=== PATIENT | female | born 1950 | race Caucasian/White ===

== ENCOUNTER 2018-11-30 10:51 | Emergency (ER) | payer MEDICARE, SELFPAY ==
[2018-11-30 10:52] VITALS: BP 188/75; PULSE 47; RESP 16; TEMP 36.6; O2SAT 97; BMI 33.0
--- NOTE | 2018-11-30 10:54 | RAD_ITS ---
STUDY: X-RAY CHEST REASON FOR EXAM: Female, 68 years old. Chest pressure. TECHNIQUE: Single AP portable view of the chest. COMPARISON: Comparison is made with prior study dated September 21, 2017. FINDINGS: EKG electrodes are seen. The lungs are clear and expanded. There is no demonstrated pleural abnormality. Normal size heart. Normal mediastinum and tex. Normal visualized pulmonary arteries. Normal visualized aortic arch and descending thoracic aorta. There are diffuse degenerative changes of the visualized thoracic spine. Normal visualized ribs, clavicles, and shoulders. There is no demonstrated abnormality of the visualized soft tissue structures of the upper abdomen. RAD/Chest 1 View (Portable) IMPRESSION: No acute abnormality is seen. Electronically Signed: Eleazar Cummings MD at 11:29 EST , Service support ,
--- NOTE | 2018-11-30 10:54 | EKG12_ITS ---
Test Reason : CHEST TIGHTNESS Blood Pressure : / mmHG Vent. Rate : 050 BPM Atrial Rate : 050 BPM P-R Int : 184 ms QRS Dur : 094 ms QT Int : 430 ms P-R-T Axes : 046 001 -09 degrees QTc Int : 392 ms Sinus bradycardia Otherwise normal ECG When compared with ECG of 21-SEP-2017 21:35, Vent. rate has decreased BY 44 BPM Nonspecific T wave abnormality no longer evident in Anterior leads QT has shortened Confirmed by REINA KIRAN, VEL ([id number]), assignment desk editor GLORIA MCNULTY ([id number]) on 12/11/2018 5:33:25 PM Referred By: Naeem Freeman Confirmed By:VEL HUANG MD
[2018-11-30] MEDS: Aspirin 81 MG TAB.CHEW 324 MG PO (11:14)
[2018-11-30 11:15] LABS: Basophil# 0.02 X10^3/uL; Basophil% 0.3 % (0-1); Eosinophil# 0.14 X10^3/uL; Eosinophils% 2.3 % (0-5); Hematocrit 43.4 % (37-47); Hemoglobin 14.1 g/dl (12.0-15.0); Lymphocyte % 26.2 % (19-41); Mean Corp Hgb Conc 32.5 g/gl (32-36); Mean Corpuscular Hgb 31.2 pg (27.0-32.0); Mean Platelet Vol. 10.4 fl (6.2-12.0); Monocyte# 0.36 X10^3/uL; Monocyte% 5.9 % (0-10); Neutrophil # 3.98 X10^3/uL (2.7-7.7); Neutrophil % 65.1 % (47-70); Platelet Count 211 K/mm3 (150-450); Red Blood Count 4.52 M/mm3 (4.2-5.4); White Blood Count 6.1 K/mm3 (4.4-11.0)
[2018-11-30 11:16] LABS: POSITIVE COUNT NO; POSITIVE DIFFERENTIAL NO; POSITIVE MORPHOLOGY NO
[2018-11-30 11:33] LABS: Anion Gap 8 (5-15); BUN 18 mg/dL (7-18); BUN/Creat Ratio 21.5 RATIO (10-20); Chloride 108 mmol/L (98-107); Creatinine, Serum 0.84 mg/dL (0.55-1.02); EST Glomerular Filtration Rate 72 mL/min (>60); Est Glom Filt Rate - Afr Amer 87 mL/min (>60); Estimated Creatinine Clearance 54.58 ml/min; Glucose 175 mg/dL (74-106); Potassium 3.9 mmol/L (3.5-5.1); Sodium Level 143 mmol/L (136-145)
[2018-11-30 11:55] VITALS: BP 138/75; PULSE 49; RESP 11; O2SAT 94
[2018-11-30 12:44] VITALS: BP 147/71; PULSE 47; RESP 13; O2SAT 95
--- NOTE | 2018-11-30 13:34 | ED.VISSUMM ---
- ER Visit Summary Date of Service: 11/30/18 Chief Complaint: Chest tightness History of Present Illness: The patient is a 68 F with chest tightness today. This is in the substernal xiphoid process region but does not radiate. She said her blood pressure has been as high as 195/147 at home. No history of coronary disease, PE, dissection. She does have a history of hypertension. She has not been taking her medications regularly but did take her blood pressure medicine over the last 2 days. No exertional symptoms. No other associated symptoms. Physical Examination: Afebrile and vital signs unremarkable except for a blood pressure of 188/75. Alert and oriented. No acute process. Heart regular. Lungs clear. Abdomen soft. Extremities nontender with no edema. Skin appears normal. Test Results: EKG showed sinus rhythm at a rate of 50. Chest x-ray showed no acute process. CBC, BMP, troponin normal. Emergency Department Course and Treatment: Patient treated with aspirin and placed on a monitor. Her workup as above. Heart score was 3. Repeat blood pressure 138/75. She says her heart rate is typically in the 50s. She has an atypical presentation and low risk. She was discussed with her PCP. We will advised outpatient follow-up. Return for any new or worsening issues. Patient was in agreement. All questions answered. Treatment Plan: As above Disposition: Discharged Impression: 1. Atypical chest pain This note was generated with [employer] software. It may contain incorrect words, spelling, and punctuation that were not noted in review of the chart prior to signing ED Disposition - Plan for ED Patient: Referrals: Naeem Freeman MD [Primary Care Provider] -
--- NOTE | 2018-11-30 13:36 | ED.DEP ---
ED Disposition - Plan for ED Patient: Instructions: ED Chest Pain Atypical Unkn Cause Referrals: Naeem Freeman MD [Primary Care Provider] -
[2018-11-30 14:21] VITALS: BP 149/87; PULSE 50; RESP 14; O2SAT 95
== END 2018-11-30 14:22 | disposition home or self-care (01) ==
PROVIDERS: Emergency Provider Emergency Medicine; Family Provider Family Medicine; PCP Family Medicine
DX: R07.89 Other chest pain (principal); I10 Essential (primary) hypertension; Z79.899 Other long term (current) drug therapy
CPT/HCPCS: 71045; 80048; 84484; 85025; 93005; 99285; A4216

== ENCOUNTER 2023-11-09 20:01 | Observation (INO) | payer MEDICARE, SELFPAY ==
[2023-11-09 20:01] VITALS: BP 139/87; PULSE 76; RESP 18; TEMP 36.6; O2SAT 99; BMI 31.8
--- NOTE | 2023-11-09 20:07 | ED.RN ---
PER DR ALEX PAREKH FOR CTA.
[2023-11-09 20:25] LABS: Absolute Lymphocyte Count 1.47 X10^3/uL (0.83-4.51); Absolute Neutrophil Count 7.8 X10^3/uL (2.0-7.7); Basophil# 0.03 X10^3/uL; Basophil% 0.3 % (0-1); Eosinophil# 0.01 X10^3/uL; Eosinophils% 0.1 % (0-5); Hematocrit 43.9 % (37-47); Hemoglobin 14.8 g/dL (12.0-15.0); Lymphocyte # 1.47 X10^3/ul (0.83-4.51); Mean Corp Hgb Conc 33.7 g/dL (32-36); Mean Platelet Vol. 10.4 fl (6.2-12.0); Monocyte# 0.45 X10^3/uL; Monocyte% 4.6 % (0-10); NRBC Flagged by Analyzer 0 % (0-5); Neutrophil # 7.83 X10^3/uL (2.7-7.7); Neutrophil % 79.6 % (47-70); Platelet Count 232 K/mm3 (150-450); RBC Distribution Width SD 40.7 fl (35.1-43.9); Red Blood Count 4.77 M/mm3 (4.2-5.4); White Blood Count 9.8 K/mm3 (4.4-11.0)
[2023-11-09 20:34] LABS: International Normalized Ratio 1.1; Prothrombin Time (Protime)PT. 13.8 SECONDS (11.7-14.9)
[2023-11-09 20:35] LABS: Partial Thromboplast Time 28.1 Seconds (24.1-36.2)
--- NOTE | 2023-11-09 20:40 | RAD_ITS ---
STUDY: X-RAY CHEST REASON FOR EXAM: Female, 73 years old. Stroke TECHNIQUE: Single AP portable view of the chest. COMPARISON: 11/30/2018 FINDINGS: The lungs are clear and expanded. There is no demonstrated pleural abnormality. Normal size heart. Normal mediastinum and tex. Normal visualized pulmonary arteries. Normal visualized aortic arch and descending thoracic aorta. There are diffuse degenerative changes of the visualized thoracic spine. Normal visualized ribs, clavicles, and shoulders. There is no demonstrated abnormality of the visualized soft tissue structures of the upper abdomen. RAD/Chest 1 View (Portable) IMPRESSION: Normal x-ray examination of the chest. Electronically Signed: Rashawn Mondragon MD at 21:50 EST ,
[2023-11-09 20:55] LABS: Anion Gap 3 (5-15); BUN 19 mg/dL (7-18); BUN/Creat Ratio 21.6 RATIO (10-20); Chloride 108 mmol/L (98-107); Creatinine, Serum 0.88 mg/dL (0.55-1.02); EST Glomerular Filtration Rate 67 mL/min (>60); Est Glom Filt Rate - Afr Amer 81 mL/min (>60); Estimated Creatinine Clearance 58.84 ml/min; Glucose 202 mg/dL (74-106); Potassium 3.6 mmol/L (3.5-5.1); Sodium Level 137 mmol/L (136-145)
[2023-11-09] MEDS: 0.9% Normal Saline (1000mL) 1,000 ML 50 ML IV (21:01)
--- NOTE | 2023-11-09 21:18 | CT_ITS ---
STUDY: CTA HEAD AND NECK WITH CONTRAST REASON FOR EXAM: Female, 73 years old. DIZZINES RADIATION DOSAGE (If Supplied By Facility): CTDIvol = ( 26.89 ) mGy, DLP = ( 1583.69 ) mGycm TECHNIQUE: CT angiography was performed with a multi-detector CT scanner. Data acquisition was obtained from the skull base through the vertex following intravenous administration of IV 100mL [id number]-[id number]. MIP images were reconstructed from the axial data set. Post-processing of the angiographic images was performed, with multiplanar reformation and 3D reconstruction. Individualized dose optimization techniques were used for this CT. COMPARISON: No relevant priors. FINDINGS: Normal bilateral petrous carotid arteries. There is calcified plaque formation of the right cavernous carotid artery, with a mild stenosis (less than 50%). There is calcified plaque formation of the left cavernous carotid artery, with a moderate stenosis (50-75%). Normal right A1 segments of the anterior cerebral artery. Normal left A1 segments of the anterior cerebral artery. Normal intact anterior communicating artery (ACOM). Normal bilateral A2 segments of the anterior cerebral arteries. Normal right M1 and M2 segments of the middle cerebral arteries, with a normal M1 bifurcation. Normal left M1 and M2 segments of the middle cerebral arteries, with a normal M1 bifurcation. Normal right posterior communicating artery (PCOM). Normal left posterior communicating artery (PCOM). Normal bilateral vertebral arteries. Normal basilar artery with a normal basilar bifurcation. The visualized bilateral superior cerebellar (SCA) arteries are normal. Normal bilateral P1, P2 and visualized P3 segments of the posterior cerebral arteries. There is no demonstrated aneurysm of the [place]. There is no demonstrated abnormality of the visualized brain. AORTIC ARCH: Normal visualized aortic arch. Normal origins of the brachiocephalic, left common carotid, and left subclavian arteries. RIGHT CAROTID ARTERIES: There is atherosclerotic tortuous elongation of the right common carotid artery. Normal right common carotid bulb. Normal origin of the right internal carotid (ICA) artery without a hemodynamically significant stenosis. There is atherosclerotic tortuous elongation of the cervical portion of the right internal carotid artery. Normal origin of the right external carotid artery (ECA). LEFT CAROTID ARTERIES: There is atherosclerotic tortuous elongation of the left common carotid artery. Normal left common carotid bulb. Normal origin of the left internal carotid (ICA) artery without a hemodynamically significant stenosis. There is atherosclerotic tortuous elongation of the cervical portion of the left internal carotid artery. Normal origin of the left external carotid artery (ECA). VERTEBRAL ARTERIES: Normal bilateral vertebral arteries. CT/CTA Head AND Neck W/ Contrast IMPRESSION: No large vessel occlusion or acute abnormality. Calcified plaque in both cavernous carotid arteries but less than 50% stenosis bilaterally. Otherwise unremarkable for age. Electronically Signed: Rashawn Mondragon MD at 22:04 EST ,
--- NOTE | 2023-11-09 21:38 | EX.ED.DYSGE1 ---
HPI History of Present Illness Chief Complaint: Dizziness Informant: patient Onset/Context/Timing Onset: Today Quality: Awoke with room spinning dizziness. This morning. Current Severity: Mild Maximum Severity: Moderate Narrative Narrative: Healthy 73-year-old female with prediabetes. No history of cardiac disease or stroke. She awoke this morning and said before she got out of bed she had room spinning dizziness associated nausea and vomited few times. No diarrhea. No headache. No head trauma. No prior stroke or mini stroke. She is on no blood thinners. Currently it is slowly improving. It has been all day. No trouble with her speech. No arm or leg weakness or numbness. Worse with head movement. Prior similar symptoms: Yes Recent Illness/Hospitalization: No PFSH PFSH Medical History (Updated 11/09/23 @ 23:[address] Duke Locke MD) Diabetes mellitus, type 2 GERD (gastroesophageal reflux disease) HLD (hyperlipidemia) HTN (hypertension) Obesity Home Medications atenolol 50 mg tablet 50 mg PO DAILY BLOOD PRESSURE 11/30/18 [History Last Taken Unknown] hydrochlorothiazide 25 mg tablet 25 mg PO DAILY BLOOD PRESSURE 11/30/18 [History Last Taken Unknown] lisinopril 10 mg tablet 10 mg PO DAILY BLOOD PRESSURE 11/30/18 [History Last Taken Unknown] atorvastatin 20 mg tablet 20 mg PO DAILY 11/09/23 [History Last Taken Unknown] cholecalciferol (vitamin D3) 10 mcg (400 unit) capsule (Vitamin D3) 10 mcg PO DAILY 11/09/23 [History Last Taken Unknown] glimepiride 4 mg tablet 4 mg PO DAILY 11/09/23 [History Last Taken Unknown] omeprazole 20 mg capsule,delayed release 20 mg PO DAILY PRN GERD 11/09/23 [History Last Taken Unknown] Allergy/AdvReac Type Severity Reaction Status Date / Time doxycycline Allergy Rash Verified 11/09/23 20:04 metformin Allergy Pain in Verified 11/09/23 20:04 joints Penicillins [PCN] Allergy Rash Verified 11/09/23 20:04 Family History no significant family his Surgical History H/O: hysterectomy Hx of cholecystectomy Social History household members: family Smoking Status: Never smoker ROS ROS ED Review of Systems ROS Unobtainable: Denies due to encephalopathy Constitutional Constitutional ED: Denies chills or fever(s) Eyes Eyes: Denies blurry vision ENT ENT ED: Denies ear pain Cardiovascular Cardiovascular: Denies chest pain Respiratory/Chest Respiratory/Chest: Denies dyspnea Gastrointestinal Gastrointestinal: Reports nausea and vomiting; Denies abdominal pain, constipation, diarrhea or melena Genitourinary Genitourinary ED: Denies dysuria or hematuria Musculoskeletal Musculoskeletal: Denies arthralgias Integumentary Denies abscess or Abrasions Neurologic Neurologic: Denies headache(s) Psychiatric Psychiatric: Denies anxiety or depression Endocrine Endocrinology: Denies cold intolerance or heat intolerance Hematologic/Lymphatic Hematologic/Lymphatic: Reports none Allergic/Immunologic Allergic/Immunologic ED: Denies mouth swelling, tongue swelling or urticaria EXAM Physical Exam Narrative Exam Narrative: Well-appearing 73-year-old female. Vital signs stable afebrile. Pulse ox 99% on room air no proxy. Female friend present at bedside. HEENT exam unremarkable. Pupils round reactive Lesch motions are intact. No facial droop. No signs of trauma. Normal speech. TMs normal bilaterally. No wax impaction. Neck nontender no lymphadenopathy. Lungs clear to auscultation bilaterally. Heart regular rhythm no murmur. Rate about 75. Chest wall nontender. Abdomen soft nontender. Pelvic girdle intact. Moving all 4 extremities. 5 out of 5 irrigationist designer strength. Dorsi plantarflexion intact. Neurologic exam normal. NIH is 0. Fingertip to nose within normal limits. Able to lift either leg or arm with no drift. Rapid hand movements normal. I laid her flat in bed and had to rotate her head left to right her symptoms worsen but they are much improved from what they were this morning according the patient. Const Vital Signs: 11/09/23 20:01 11/09/23 20:04 11/09/23 21:08 Temperature 97.9 F Temperature Source Temporal Pulse Rate 76 Respiratory Rate 18 Respiratory Effort Normal Respiratory Pattern Normal Blood Pressure 139/87 H Blood Pressure Mean 104 Pulse Ox 99 Oxygen Delivery Method Room Air Room Air 11/09/23 23:00 Temperature Temperature Source Pulse Rate 63 Respiratory Rate 12 Respiratory Effort Respiratory Pattern Blood Pressure 116/71 Blood Pressure Mean 86 Pulse Ox Oxygen Delivery Method Positive well nourished and well developed; Negative for cachectic, contractures or unkempt General Appearance ED: well developed and NAD; Negative for unkempt, cachectic, contractures, cyanotic, diaphoretic or pallor Nutritional Appearance: Negative for cachectic HEENT Reports TM's clear and moist mucous membranes; Denies dry mucous membranes Negative for trauma or tenderness Tympanic Membrane ED: Yes TM's clear Mouth ED: No dry mucous membranes Mouth: No dry mucous membranes Eyes PERRL and EOMs intact bilaterally General Eye ED: Negative for pale conjunctiva or scleral icterus Neck no lymphadenopathy, supple and no JVD General: Negative for tenderness Lymph Lymphatic: Negative for other Chest Wall inspection of chest normal and palpation of chest normal Chest: Negative for other Resp normal respiratory effort and clear to auscultation bilaterally Effort and Inspection: Negative for retractions Auscultation: Negative for rales, rhonchi or wheezes Cardio regular rate, regular rhythm, S1 normal heart sound, S2 normal heart sound and no murmurs Palpation: Negative for palpable S3 or palpable S4 Rate: Negative for bradycardia or tachycardic Rhythm: Negative for abnormal rhythm GI normal to inspection, nondistended, normoactive bowel sounds, non-tender, non-distended and no masses Inspection: Negative for abdominal distention Auscultation: normoactive bowel sounds Palpation: soft; Negative for tender or guarding Back/Spine no CVA tenderness General Back: Negative for CVA tenderness Cervical Spine: Negative for cervical spine tenderness Thoracic Spine / Upper Back: Negative for thoracic spinal tenderness or paraspinal muscle tenderness Lumbar Spine / Lower Back: Negative for lumbar spinal tenderness Extremity normal to inspection General Extremety ED: Negative for edema or tenderness General Extremity: Negative for edema Neuro oriented x3 and CN's II-XII intact bilaterally Sensorium / Orientation: alert and orientation impaired; Negative for lethargic or stuporous Motor Exam: strength 5/5 throughout Psych mental status grossly normal Appearance: Negative for unkempt Attitude: No agitated Mood & Affect: Negative for depressed, anxious or tearful Skin no rashes or lesions noted, no wounds and skin turgor normal General Skin Exam: Negative for jaundice or pallor Lesions: No lesion noted Rashes: No rashes noted Trauma: Negative for abrasion Wounds: Negative for wounds noted MDM MDM MDM Narrative Medical decision making narrative: 73-year-old with room spinning dizziness today when she woke up. Sounds like vertigo. No signs of stroke normal NIH. Worse with moving her head [id number]. But symptoms significantly improved from earlier today. Treated with Zofran for nausea and Ativan nurses put in triage protocol orders. Repeat exam patient is doing well at 10:17 PM. Patient is neurologic exam is unchanged NIH remains 0. I did try to ambulate her. She gets up she can walk she is a little unsteady and nervous to go home. Family member at bedside encouraged her to stay. I will speak to the hospitalist about an observation admission for vertigo and difficulty ambulating. History & Record Review Discussion w/independent historian: Patient Additional record(s) reviewed:: Prior inpatient record, Prior outpatient record, Prior ED visit and Prior labs Lab Data Attestation: I reviewed the patient's lab results. Lab results narrative: CBC is normal shows a white count 9. H&H 14 and 43. Platelets 232. PT and INR are 13 and 1. PTT 28. Electrolytes show anion gap of 3. BUN and creatinine 19 and 0.8. Glucose 202. Labs: Laboratory Results - last 24 hr 11/09/23 20:10 WBC 9.8 RBC 4.77 Hgb 14.8 Hct 43.9 MCV 92.0 MCH 31.0 MCHC 33.7 RDW Std Deviation 40.7 RDW Coeff of Mignon 12.0 Plt Count 232 MPV 10.4 Immature Gran % (Auto) 0.400 Neut % (Auto) 79.6 H Lymph % (Auto) 15.0 L [place] % (Auto) 4.6 Eos % (Auto) 0.1 Baso % (Auto) 0.3 Absolute Neuts (auto) 7.8 H Absolute Lymphs (auto) 1.47 Nucleated RBC % 0 PT 13.8 INR 1.1 APTT 28.1 Sodium 137 Potassium 3.6 Chloride 108 H Carbon Dioxide 26.0 Anion Gap 3 L BUN 19 H Creatinine 0.88 Estim Creat Clear Calc 58.84 Est GFR (MDRD) Af Amer 81 Est GFR (MDRD) Non-Af 67 BUN/Creatinine Ratio 21.6 H Glucose 202 H Calcium 10.0 Radiography Chest X-Ray - ED: 1 View, Read by ED Physician, Read by Radiologist, Normal, Heart, Lungs, Mediastinum, Bony Structures, No Acute Disease and Chronic Changes Diagnostic Testing: Clinical Impression(s) from Imaging Studies Chest X-Ray 11/09/23 20:40 IMPRESSION: Normal x-ray examination of the chest. Electronically Signed: Rashawn Mondragon MD at 21:50 EST , Head/Neck CTA 11/09/23 21:18 IMPRESSION: No large vessel occlusion or acute abnormality. Calcified plaque in both cavernous carotid arteries but less than 50% stenosis bilaterally. Otherwise unremarkable for age. Electronically Signed: Rashawn Mondragon MD at 22:04 EST , Chest x-ray, portable, single view interpreted by myself and radiologist shows no acute abnormality. Normal cardiac silhouette. Normal mediastinum. Normal lung chambers. Rhythm Strip Rhythm Strip: Sinus Rhythm Rate: 63 Ectopy: None EKG Initial EKG: Attestation: I personally reviewed and interpreted this EKG as follows: Interpretation: Sinus Rhythm and No Acute Injury Pattern Comments: Normal sinus rhythm rate of 63 no acute signs of MA or ischemia. Discharge Plan Triage Chief Complaint: Dizziness ED Provider: Duke Locke Dx/Rx/DC Orders Clinical Impression: History of prediabetes, Dizziness, Vertigo Prescriptions: No Action lisinopril 10 MG tablet 10 mg PO DAILY hydrochlorothiazide 25 MG tablet 25 mg PO DAILY atenolol 50 MG tablet 50 mg PO DAILY atorvastatin 20 mg tablet 20 mg PO DAILY glimepiride 4 mg tablet 4 mg PO DAILY omeprazole 20 mg capsule,delayed release(DR/EC) 20 mg PO DAILY PRN (Reason: GERD) cholecalciferol (vitamin D3) [Vitamin D3] 10 mcg (400 unit) capsule 10 mcg PO DAILY Primary Care Provider: Naeem Freeman Referrals: Naeem Freeman MD [Primary Care Provider] - Disposition Disposition: Acute Care [facility]
--- OUTSIDE RECORDS SUMMARY | 2023-11-09 21:51 | XMS RPT_ITS | CCD ---
Author Name Unknown Address [address] [place] [address] Organization [facility] Care Team Providers Care Surfacing Machine Operator Name Role Phone Deborah Kendall MD Primary Care Provider [facility], [facility] Physicians Primary Care Provider Unav Deborah Lehman MD Primary Care Provider DEBORAH KENDALL Primary Care Unavailable OFELIA GIANG Referring Unavailable OFELIA GIANG Attending Unavailable [facility] Primary Care Unavailable ROSARIO, LIDIA Attending Unavailable [facility] Primary Care Unavailable LIDIA PONCE Attending Unavailable FAIZA, DEBORAH Primary Care Unavailable FAIZA, DEBORAH Primary Care Unavailable FAIZA, DEBORAH Referring Unavailable FAIZA, DEBORAH Primary Care Unavailable FAIZA, DEBORAH Referring Unavailable FAIZA, DEBORAH Primary Care Unavailable FAIZA, DEBORAH Attending Unavailable FAIZA, DEBORAH Primary Care Unavailable FAIZA, DEBORAH Referring Unavailable FAIZA, DEBORAH Primary Care Unavailable FAIZA, DEBORAH Referring Unavailable FAIZA, DEBORAH Primary Care Unavailable FAIZA, DEBORAH Attending Unavailable FAIZA, DEBORAH Primary Care Unavailable SANDOVAL CUMMINS Referring Unavailable Allergies Allergy Classification Reported Allergen(s) Allergy Type Date of Onset Reaction(s) Facility (20 sources) Doxycycline; Translations: [DOXYCYCLINE HYCLATE] Drug Allergy 03-24-[address] [facility] Work Phone: (20 sources) metFORMIN; Translations: [METFORMIN] Drug Allergy 10-15-2019 Other: See Comments, Other [facility] (20 sources) Penicillin G; Translations: [PENICILLIN G] Drug Allergy 08-03-2005 [facility] Work Phone: (2 sources) Doxycycline Drug Allergy 03-24-[address] [facility] Medications Completed/Discontinued Medications Medication Drug Class(es) Dates Sig (Normalized) Sig (Original) atenolol 50 mg oral tablet (20 sources) beta-Adrenergic Chet Start: 03-01-2022 End: 02-24-2023 take 1 tablet by mouth once daily atenolol (TENORMIN) 50 mg tablet Take 1 tablet by mouth once daily. 90 tablet 3 03/01/2022 02/24/2023 Discontinued Problems Active Problems Problem Classification Problem Date Documented Date Episodic/Chronic Abdominal pain (1 source) Left upper quadrant pain; Translations: [Left upper quadrant abdominal pain] Onset: 10-19-2023 Episodic Administrative/social admission (4 sources) Patient encounter status; Translations: [Persons encountering health services in other specified circumstances] Onset: 06-03-2023 04-05-2023 Episodic Cancer of uterus (20 sources) Adenocarcinoma of endometrium; Translations: [Malignant neoplasm of endometrium] Onset: 03-23-2017 03-23-2017 Chronic Diabetes mellitus without complication (20 sources) Diabetes mellitus; Translations: [Type 2 diabetes mellitus without complications] Onset: 12-21-2016 12-21-2016 Chronic Disorders of lipid metabolism (20 sources) Hyperlipidemia; Translations: [Hyperlipidemia, unspecified] Onset: 02-05-2015 02-05-2015 Chronic Essential hypertension (20 sources) Essential hypertension; Translations: [Essential (primary) hypertension] Onset: 08-22-2005 11-17-2015 Chronic Osteoarthritis (19 sources) Degenerative joint disease involving multiple joints; Translations: [Polyosteoarthritis, unspecified] Onset: 08-22-2005 09-20-2019 Chronic Other and unspecified benign neoplasm (1 source) Multiple benign melanocytic nevi ; Translations: [Melanocytic nevi of right upper limb, including shoulder] 06-03-2023 Episodic Other and unspecified benign neoplasm (1 source) Hemangioma of skin; Translations: [Hemangioma of skin and subcutaneous tissue] 06-03-2023 Episodic Other and unspecified benign neoplasm (2 sources) Melanocytic nevi of right upper limb, including shoulder; Translations: [Melanocytic nevi of right upper limb, including shoulder] Onset: 06-03-2023 Episodic Other and unspecified benign neoplasm (2 sources) Melanocytic nevi of trunk; Translations: [Melanocytic nevi of trunk] Onset: 06-03-2023 Episodic Other and unspecified benign neoplasm (2 sources) Melanocytic nevi of left upper limb, including shoulder; Translations: [Melanocytic nevi of left upper limb, including shoulder] Onset: 06-03-2023 Episodic Other and unspecified benign neoplasm (2 sources) Melanocytic nevi of right lower limb, including hip; Translations: [Melanocytic nevi of right lower limb, including hip] Onset: 06-03-2023 Episodic Other and unspecified benign neoplasm (2 sources) Melanocytic nevi of left lower limb, including hip; Translations: [Melanocytic nevi of left lower limb, including hip] Onset: 06-03-2023 Episodic Other and unspecified benign neoplasm (2 sources) Hemangioma of skin and subcutaneous tissue; Translations: [Hemangioma of skin and subcutaneous tissue] Onset: 06-03-2023 Episodic Other nutritional; endocrine; and metabolic disorders (19 sources) Obesity; Translations: [Obesity, unspecified] Onset: 03-19-2009 03-19-2009 Chronic Other skin disorders (2 sources) Seborrheic keratosis; Translations: [Other seborrheic keratosis] 04-04-2023 Episodic Other skin disorders (1 source) Multiple actinic keratoses; Translations: [Actinic keratosis] 04-04-2023 Episodic Other skin disorders (1 source) Inflamed seborrheic keratosis; Translations: [Inflamed seborrheic keratosis] 04-04-2023 Episodic Other skin disorders (1 source) Solar lentigo; Translations: [Other melanin hyperpigmentation] 06-03-2023 Episodic Other skin disorders (2 sources) Other seborrheic keratosis; Translations: [Other seborrheic keratosis] Onset: 06-03-2023 Episodic Other skin disorders (2 sources) Other melanin hyperpigmentation; Translations: [Other melanin hyperpigmentation] Onset: 06-03-2023 Episodic Other skin disorders (2 sources) Actinic keratosis; Translations: [Actinic keratosis] Onset: 04-04-2023 Episodic Other skin disorders (2 sources) Inflamed seborrheic keratosis; Translations: [Inflamed seborrheic keratosis] Onset: 04-04-2023 Episodic Other upper respiratory infections (1 source) Acute upper respiratory infection; Translations: [Acute upper respiratory infection, unspecified] Episodic Spondylosis; intervertebral disc disorders; other back problems (19 sources) Degeneration of lumbosacral intervertebral disc; Translations: [Other intervertebral disc degeneration, lumbosacral region] Onset: 03-24-2009 03-24-2009 Chronic Past or Other Problems Problem Classification Problem Date Documented Da te Episodic/Chronic Other non-traumatic joint disorders (19 sources) Pain in left knee; Translations: [Pain in joint, lower leg] Onset: 10-13-2016 10-13-2016 Episodic Other non-traumatic joint disorders (1 source) Pain in right wrist; Translations: [Right wrist pain] Onset: 03-15-2023 Episodic Other screening for suspected conditions (not mental disorders or infectious disease) (20 sources) Protein level - finding; Translations: [Other specified abnormal findings of blood chemistry] Onset: 03-19-2019 03-19-2019 Episodic Results Test Name Value Interpretation Reference Range Facil ity Vital Signs Date Time Vital Sign Value Performing Clinician Rk grigsby 12-13-2022 15:39-0500 Body temperature 100 [degF] Deborah Knedall MD Work Phone: [facility] 12-13-2022 15:39-0500 Body weight 82.56 kg Deborah Kendall MD Work Phone: [facility] 12-13-2022 15:39-0500 Diastolic blood pressure 86 mm[Hg] Deborah Kendall MD Work Phone: [facility] 12-13-2022 15:39-0500 Heart rate 74 /min Deborah Kendall MD Work Phone: [facility] 12-13-2022 15:39-0500 Respiratory rate 18 /min Deborah Kendall MD Work Phone: [facility] 12-13-2022 15:39-0500 Systolic blood pressure 134 mm[Hg] Deborah Kendall MD Work Phone: [facility] Encounters Encounter Date Encounter Type Care Provider Facility Start: 10-19-2023 End: 10-19-2023 ambulatory DEBORAH KENDALL Facility:[facility] Start: 10-18-2023 End: 10-18-2023 [facility] Start: 08-12-2023 Refill Deborah arguelles MD Work Phone: [facility] Procedures Date Procedure Procedure Detail Performing Clinician Start: 04-04-2023 CRYOTHERAPY SKIN LESION Lidia Ponce PA-C Work Phone: Start: 12-14-2022 End: 12-14-2022 Mammography Bulk Order Provider Start: 12-13-2022 COVID WITH FLUA+B, ROUTINE Deborah Kendall MD Work Phone: Start: 03-20-2021 Mammography Floresita Urrutia opart Start: 03-19-2019 Adult depression scr eening assessment Floresita Dopart Start: 05-19-2015 Colonoscopy Floresita Urrutia opart Plan of Treatment Date Care Activity Detail Author Start: 05-19-[address] [facility] Start: 05-19-2025 COLORECTAL CANCER SCREENING COLORECTAL CANCER SCREENING [facility] Start: 06-05-2024 End: 06-05-2024 Patient encounter procedure 06/05/2024 2:20 PM EDT Office Visit [facility] [address] [place] [address] Lidia Ponce PA-C [address] [place], [place] [id number] [facility] Start: 03-31-2024 Hepatitis C antibody, confirmatory test DILATED RETINAL EXAM [facility] Start: 03-15-2024 BP CONTROLLED (<130/80) BP CONTROLLED (<130/80) [facility] in Start: 02-23-2024 Hepatitis B screening URINE ALBUMIN:CREATININE RATIO [facility] Start: 02-23-2024 Hepatitis B surface antibody level LDL CHOLESTEROL [facility] Start: 12-14-[address] [facility] Start: 12-13-2023 ANNUAL PCP TEAM CHRONIC DISEASE VISIT ANNUAL PCP TEAM CHRONIC DISEASE VISIT [facility] Start: 08-25-2023 Hemoglobin A1c/Hemoglobin.total in Blood HBA1C [facility] Start: 06-17-2023 Covid-19 Vaccine ( season) Covid-19 Vacc[address] () [facility] Start: 06-17-[address] [facility] Start: 06-03-2023 End: 06-03-2023 Patient encounter procedure 06/03/2023 3:40 PM EDT Office Visit [facility] [address] [place] [id number] Lidia Ponce PA-C [address] [place] [address] [facility] Start: 02-21-2023 End: 04-23-2023 ALBUMIN/CREAT RATIO RND UR ALBUMIN/CREAT RATIO RND UR Lab Routine Type 2 diabetes mellitus without complication, unspecified whether retirement insulin use (HCC) Expected: 02/21/2023 (Approximate), Expires: 04/23/2023 [facility] Work Phone: Immunizations Immunization Date Immunization Notes Care Provider Fa cilidavon 06-27-2018 influenza virus vaccine, unspecified formulation Deborah Kendall MD Work Phone: [facility] 11-17-2003 diphtheria and tetan us toxoids, adsorbed for pediatric use Floresita Espinoza [facility] Work Phone: Payers Date Payer Category Payer Medicare A[employer] MEDICARE A ETNA MEDICARE PPO [id number] 2021-Present [phone] [address] [place] [address] O [id number] 2021 Medicare [id number] 2021 Medicare [id number] Social History Date Type Detail Facility Start: 08-13-2011 End: 12-13-2022 Tobacco smoking status NHIS Never smoked tobacco [facility] Start: 12-28-2021 End: 12-13-2022 Alcohol intake Current drinker of alcohol (finding) [facility] Start: 02-18-2017 History SDOH Alcohol Comment OCCASIONAL < 1/week [facility] Start: 1950 Sex Assigned At Not on file [facility] Start: 12-18-2021 End: 06-03-2023 Exposure to SARS-CoV-2 (event) Not sure [facility] Start: 08-13-2011 End: 12-13-2022 Tobacco use and exposure Smokeless tobacco non-user [facility] Work Phone: Tobacco smoking stat [facility] Tobacco smoking consumption unknown [facility] Start: 09-21-2020 End: 04-25-2023 Gender identity Not on file [facility] Start: 09-21-2020 End: 04-25-2023 History of [address] function [facility] Adult Depression Screening Assessment 0 [facility] Clinical Notes 10-13-2016 to 10-19-2023 Telephone Encounter - Deborah Kendall MD - 08/12/2023 11:51 AM EDTTelephone Encounter - Tianna Dela Cruz - 08/12/2023 9:00 AM EDTLidia Ponce PA-C - 06/03/2023 3:40 PM EDT Note Date & Type Note Facility 10-19-2023 Note HNO ID: [id number] Author: Viri Cody RT(R) Service: ? Author Type: Formula Maker Type: Progress Notes Filed: 10/19/2023 3:57 PM Note Text: Radiology Service Progress Note PATIENT NAME: Pily Hendrix DATE OF SERVICE: October 19, 2023 TIME: 3:56 PM PATIENT IDENTITY VERIFICATION COMPLETED USING TWO (2) IDENTIFIERS: Name and Date of confirmed by patient verbally. FALL SCREENING: Has the patient had 2 falls in the last year or 1 fall with injury or currently using an Ambulatory Assistive Device (Walker, Cane, Wheelchair, Crutches, etc.)? No PATIENT GENDER DATA: Female. status: : No status: NO. PATIENT RELEVANT IMPLANT DATA REVIEWED: Yes RADIOLOGY DEPARTMENT: CT; Exam(s) Completed: Abdomen/Pelvis PERIPHERAL IV DATA: Not applicable SIGNED BY: RT Jenny(R) October 19, 2023 3:56 PM [facility] 08-12-2023 Miscellaneous Notes OK to refill as ordered Deborah Kendall MD Patient only has a few tablets left please send as soon as possible. Patient has been identified by name and date of : Yes Requested Prescriptions Pending Prescriptions Disp Refills hydroCHLOROthiazide 25 mg tablet 90 tablet 3 Sig: Take 1 tablet by mouth once daily. atorvastatin (LIPITOR) 20 mg tablet 90 tablet 3 Sig: Take 1 tablet by mouth once daily. RX INSTRUCTIONS: Patient aware RX escripted to mail away pharmacy. No need to notify patient. Tianna Munoz Pss documented in this encounter [facility] 06-03-2023 History of Present illness Narrative DATE OF SERVICE: 06/03/2023 PATIENT NAME: Pily Hendrix : 1950 AGE: 72 y.o. CLINIC NUMBER: [id number] Visit type: Established patient Chief Complaint Patient presents with Annual Exam KYE 04/04/2023 (KB) Subjective HISTORY OF PRESENT ILLNESS: Pily Hendrix is a 72 y.o. who presents to the office for a check up. Patient has never had a full skin exam done. Patient has a history of AKs treated with cryotherapy in MAR 2023. Patient denies any new, changing, itching or bleeding lesions. Family history of skin cancers. Patient has no?h/o of ATN. Patient has ?h/o of AKs. ? Patient has?personal h/o skin cancer. Patient has ?family h/o melanoma. (Patients brother has hx of basal cell skin cancer) History of pacemaker/ defibrillator? No History of HIV/ Hep C? No Allergies to Lidocaine, Epinephrine, Latex or Adhesive? No Social History: Occupation: retired . Born/raised in [place]. Outdoor sports: Yes. 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 Patient does use additional sun protection measures. Review of Systems There were no vitals filed for this visit. PHYSICAL EXAM: GENERAL APPEARANCE:?alert and oriented x3, well developed and well nourished. PSYCH: appropriate mood and affect DERMATOLOGY: 1. Encounter for skin care SKIN TYPE: II Educated on signs of skin cancer, skin cancer causes, prevention, and risk of developing skin cancers in the future. Sun protection measures reviewed, recommended monthly self skin exams and annual full skin exam. 2. Seborrheic keratosis (3) Generalized, Left Upper Back, Mid Back [place]-brown waxy papule(s) and plaque(s) Reassured that this is a benign lesion and does not require any treatment. Educated that if the lesion changes color, becomes larger, bleeds, becomes bothersome or painful then it should be reevaluated. Patient expresses understanding and is agreeable to plan. 3. Solar lentigo (3) Generalized, Left Forearm - Anterior, Right Upper Arm - Anterior Light brown well-circumscribed macule(s) Educated and reassured, benign finding secondary to sun exposure. Patient educated on the proper use of sunscreen, SPF, and how often to reapply. Recommend use of OTC mineral sun block, like Neutrogena or [place]. Patient advised to look for zinc or titanium as the active ingredient(s). Try to limit sun exposure to lead miner or late evening hours. Patient advised to perform self-skin checks and call for follow up appointment if any new or concerning lesions detected. 4. Multiple benign melanocytic nevi of both upper extremities, both lower extremities, and trunk (2) Generalized, Left Lower Leg - Anterior Scattered uniform brown macules and papules. Reassured that this is a benign lesion and does not require any treatment. Educated that if the lesion changes color, becomes larger, bleeds, becomes bothersome or painful then it should be reevaluated. Patient expresses understanding and is agreeable to plan. 5. Hemangioma of skin (3) Generalized, Right Thigh - Anterior, Right Thigh - Posterior Bright red vascular papule(s) Reassured and educated, benign finding. On this date, I have spent 30 minutes reviewing previous notes, test results and face to face with the patient discussing the diagnosis and importance of compliance with the treatment plan as well as documenting on the day of the visit. Follow up in about 1 year (around 06/05/2024) for Full Skin Exam. Lidia Ponce PA-C 06/07/23 3:33 PM REFERRING MD: No referring provider defined for this encounter. documented in this encounter [facility] 05-04-2023 Note HNO ID: [id number] Author: Jessica Orozco MA Service: ? Author Type: Steam And Power Supervisor Type: Progress Notes Filed: 05/04/2023 2:44 PM Note Text: POPULATION HEALTH NAVIGATION OUTREACH Action/FYI Returning patients call as patient left a detail message on my voicemail in regards to initial outreach [employer] Care Gaps 7.03.08 Discuss/Due for: Medicare Wellness Exam, Advance Directives Outcome: 1st attempt - Spoke to patient Patient declined scheduling Medicare Wellness Exam Patient to bring Advance Directives to future appointment Patient Identified by Name and : YES, via phone Outreach Outcome/Action Spoke to patient / parent / legal guardian: Patient declined Did you use a PCP flex slot to schedule this appointment? N/A Reason for Outreach Care Gap or Scheduling/Wellness visits Payer: No coverage found. Care Gap Reviewed:: Annual Wellness visit Reminder: Reminder note to check Health Maintenance for items below Health Maintenance items due: PNEUMOCOCCAL: 65+(1 - PCV) Never done SHINGRIX VACCINE(1 of 2) Never done DTAP,TDAP,TD(2 - Tdap) due on 11/17/2013 BP CONTROLLED (<130/80) due on 03/19/2020 DIABETIC FOOT EXAM due on 09/20/2020 COVID-19 VACCINE(4 - Moderna series) due on 10/29/2021 ADVANCE DIRECTIVE DISCUSSION Never done DEPRESSION ASSESSMENT Never done Navigation Signature: Jessica Orozco MA May 04, 2023 2:35 PM [facility] 04-29-2023 Note Patient Outreach (JAE FRYAV) PILY HENDRIX ([id number]) 1950 F NFR Date Time Provider Department 04/29/23 JESSICA OROZCO During your visit today, we recorded the following information about you: Jessica Orozco MA 04/29/2023 10:54 AM Signed POPULATION HEALTH NAVIGATION OUTREACH Action/FYI [employer] Care Gaps 7.03.08 Discuss/Due for: Medicare Wellness Exam, Advance Directives Outcome: 1st attempt - Left Message 2nd attempt - No MyChart Patient Identified by Name and : NO Outreach Outcome/Action Unable to reach patient: Left message Did you use a PCP flex slot to schedule this appointment? N/A Reason for Outreach Care Gap or Scheduling/Wellness visits Payer: No coverage found. Care Gap Reviewed:: Annual Wellness visit Reminder: Reminder note to check Health Maintenance for items below Health Maintenance items due: PNEUMOCOCCAL: 65+(1 - PCV) Never done SHINGRIX VACCINE(1 of 2) Never done DTAP,TDAP,TD(2 - Tdap) due on 11/17/2013 BP CONTROLLED (<130/80) due on 03/19/2020 DIABETIC FOOT EXAM due on 09/20/2020 COVID-19 VACCINE(4 - Moderna series) due on 10/29/2021 ADVANCE DIRECTIVE DISCUSSION Never done DEPRESSION ASSESSMENT Never done Navigation Signature: Jessica Orozco MA April 29, 2023 9:15 AM Jessica Orozco MA 05/04/2023 2:44 PM Signed POPULATION HEALTH NAVIGATION OUTREACH Action/FYI Returning patients call as patient left a detail message on my voicemail in regards to initial outreach [employer] Care Gaps 7.03.08 Discuss/Due for: Medicare Wellness Exam, Advance Directives Outcome: 1st attempt - Spoke to patient Patient declined scheduling Medicare Wellness Exam Patient to bring Advance Directives to future appointment Patient Identified by Name and : YES, via phone Outreach Outcome/Action Spoke to patient / parent / legal guardian: Patient declined Did you use a PCP flex slot to schedule this appointment? N/A Reason for Outreach Care Gap or Scheduling/Wellness visits Payer: No coverage found. Care Gap Reviewed:: Annual Wellness visit Reminder: Reminder note to check Health Maintenance for items below Health Maintenance items due: PNEUMOCOCCAL: 65+(1 - PCV) Never done SHINGRIX VACCINE(1 of 2) Never done DTAP,TDAP,TD(2 - Tdap) due on 11/17/2013 BP CONTROLLED (<130/80) due on 03/19/2020 DIABETIC FOOT EXAM due on 09/20/2020 COVID-19 VACCINE(4 - Moderna series) due on 10/29/2021 ADVANCE DIRECTIVE DISCUSSION Never done DEPRESSION ASSESSMENT Never done Navigation Signature: Jessica Orozco MA May 04, 2023 2:35 PM Allergies As of Date: 04/29/2023 Noted Allergy Reaction DOXY (DOXYCYCLINE HYCLATE) 03/24/2006 5 - Intolerance Comments: skin sensation - cold and/or hot. no rash. METFORMIN 10/15/2019 14 - Other: See Comments Comments: leg pain PENICILLIN G 08/03/2005 Date Reviewed: 04/25/2023 Reviewed by: Smitha Bryan MA - Fully Assessed Reason for Visit: Population Health Navigation Outreach [3910] Cmt: Aelarisa Care Gaps 7.5.23 Prescriptions as of 05/04/2023 - lisinopril (ZESTRIL) 20 mg tablet Take 1 tablet by mouth once daily. - glimepiride (AMARYL) 4 mg tablet Take 1 tablet by mouth daily with breakfast. - atenolol (TENORMIN) 50 mg tablet TAKE 1 TABLET DAILY - omeprazole (PRILOSEC) 20 mg capsule TAKE 1 CAPSULE DAILY 30 MINUTES BEFORE BREAKFAST - hydroCHLOROthiazide (HYDRODIURIL, ESIDRIX) 25 mg tablet Take 1 tablet by mouth once daily. - atorvastatin (LIPITOR) 20 mg tablet TAKE 1 TABLET DAILY - glimepiride (AMARYL) 4 mg tablet Take 1 tablet by mouth daily with breakfast. - celecoxib (CELEBREX) 100 mg capsule Take 1 capsule by mouth twice daily. Meds Comments as of 12/13/2022: OTC Takes Vitamin D3 daily. 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] 08/22/2005 Essential hypertension [I10] 08/22/2005 Routine general medical examination at [facility]*03/19/2009 02/05/2015 Class: Chronic Routine gynecological examination [Z01.419] 03/19/2009 02/05/2015 Class: Chronic Impaired fasting glucose [R73.01] 03/19/2009 12/27/2016 OBESITY NOS [E66.9] 03/19/2009 LUMB/LUMBOSAC DISC DEGEN [M51.37] 03/24/2009 Intradermal Nevus: L lower forehead face [D23.9]02/10/2010 12/21/2016 Melanocytic Nevus of Face: Intradermal Nevus [D*02/10/2010 12/21/2016 Irritated//Inflamed Seborrheic Keratoses [L82.0]02/10/2010 12/21/2016 Other seborrheic keratosis [L82.1] 02/10/2010 12/21/2016 Solar lentigo [L81.4] 02/10/2010 12/21/2016 Viral warts, unspecified [B07.9] 03/04/2013 12/21/2016 Cutaneous skin tags [L91.8] 03/04/2013 12/21/2016 Stucco keratosis [L85.1] 03/04/2013 12/21/2016 Actinic skin damage [L57.8] 03/04/2013 12/21/2016 Xerosis cutis [L85.3] 03/04/2013 12/21/2016 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 [facility] 04-29-2023 Note HNO ID: [id number] Author: Jessica Orozco MA Service: ? Author Type: Steam And Power Supervisor Type: Progress Notes Filed: 04/29/2023 10:54 AM Note Text: POPULATION HEALTH NAVIGATION OUTREACH Action/ [employer] Care Gaps 7.5.23 Discuss/Due for: Medicare Wellness Exam, Advance Directives Outcome: 1st attempt - Left Message 2nd attempt - No MyChart Patient Identified by Name and : NO Outreach Outcome/Action Unable to reach patient: Left message Did you use a PCP flex slot to schedule this appointment? N/A Reason for Outreach Care Gap or Scheduling/Wellness visits Payer: No coverage found. Care Gap Reviewed:: Annual Wellness visit Reminder: Reminder note to check Health Maintenance for items below Health Maintenance items due: PNEUMOCOCCAL: 65+(1 - PCV) Never done SHINGRIX VACCINE(1 of 2) Never done DTAP,TDAP,TD(2 - Tdap) due on 11/17/2013 BP CONTROLLED (<130/80) due on 03/19/2020 DIABETIC FOOT EXAM due on 09/20/2020 COVID-19 VACCINE(4 - Moderna series) due on 10/29/2021 ADVANCE DIRECTIVE DISCUSSION Never done DEPRESSION ASSESSMENT Never done Navigation Signature: Jessica Orozco MA April 29, 2023 9:15 AM [facility] 04-29-2023 History of Present illness Narrative POPULATION HEALTH NAVIGATION OUTREACH Action/JULIAN Guerana Care Gaps 7.5.23 Discuss/Due for: Medicare Wellness Exam, Advance Directives Outcome: 1st attempt - Left Message 2nd attempt - No MyChart Patient Identified by Name and : NO Outreach Outcome/Action Unable to reach patient: Left message Did you use a PCP flex slot to schedule this appointment? N/A Reason for Outreach Care Gap or Scheduling/Wellness visits Payer: No coverage found. Care Gap Reviewed:: Annual Wellness visit Reminder: Reminder note to check Health Maintenance for items below Health Maintenance items due: PNEUMOCOCCAL: 65+(1 - PCV) Never done SHINGRIX VACCINE(1 of 2) Never done DTAP,TDAP,TD(2 - Tdap) due on 11/17/2013 BP CONTROLLED (<130/80) due on 03/19/2020 DIABETIC FOOT EXAM due on 09/20/2020 COVID-19 VACCINE(4 - Moderna series) due on 10/29/2021 ADVANCE DIRECTIVE DISCUSSION Never done DEPRESSION ASSESSMENT Never done Navigation Signature: Jessica Orozco MA April 29, 2023 9:15 AM documented in this encounter [facility] 04-25-2023 Note HNO ID: [id number] Author: Ofelia Giang MD Service: ? Author Type: Physician Type: Progress Notes Filed: 04/25/2023 11:51 AM Note Text: Gynecologic Oncology [facility] Follow up Re: Pily Abreu Simeon [facility]#: [id number] Date of Service: 04/25/[address] Euceda: Pily presents for a follow-up visit for stage IA grade 1 endometrioid adenocarcinoma. Previously seen by Linda Antoine and . Briefly, she is a 72 year old female with a past medical history of HTN, Diabetes, OA, Obesity. TREATMENT HISTORY: 02/08/17 CT Abdomen No acute intra-abdominal or pelvic abnormality. Specifically, no cause for left upper quadrant pain is identified 03/03/2017: Total laparoscopic hysterectomy, bilateral salpingo-oophorectomy and cystoscopy Uterus with cervix, bilateral ovaries and fallopian tubes, hysterectomy with bilateral salpingo-oophorectomy - - Microscopic foci of well-differentiated endometrial adenocarcinoma, endometrioid type, FIGO grade 1, arising in a background of atypical endometrial hyperplasia, see comment and synoptic report. - Intramural leiomyomata and adenomyosis. - Cervix, myometrium and uterine serosa are negative for malignancy. - Bilateral ovaries and fallopian tubes are negative for malignancy. 02/2017: Normal MMR IHC expression 12/15/2018: Survivor completion date 12/04/2020 Last Office Visit with Dr Antoine: Doing well at this time . No evidence of disease recurrence. No signs or symptoms Reassured patient Return for follow up in 6 months 06/15/2021 Visit: Patient presents today for follow up visit with no complaints at this time. A Pap smear was obtained will notify patient of results. RTC in 6 months. 10/27/2021 XR KNEE Mild degenerative changes as described. 12/04/2021 MRI KNEE COMPLEX LATERAL MENISCUS TEAR WITH DISPLACED COMPONENT INTO THE INFERIOR LATERAL GUTTER POSTERIORLY. 12/21/2021 Visit: Patient presents today for follow up visit with complaints of vaginal irritation and dryness. I informed the patient that this may be a postmenopausal side effect. Upon pelvic examination, there were no abnormal findings. A Pap smear was obtained will notify patient of results. Breast exam conducted, no abnormal findings. Plan to order a mammogram. I informed the patient that she had no invasion of disease and that there is a low risk of recurrence after 5 years. Patient reports that she would still prefer to be followed every 12 months with a Pap Smear. HEALTH MAINTENANCE: Last pap: 12/21/2021 negative Last radha: 12/14/2022 negative Last breast exam: 12/21/2021 normal Last colonoscopy: 2014 SUBJECTIVE/INTERVAL HISTORY: Patient is feeling well and denies shortness of breath, nausea, vomiting, constipation, problems urinating, unexplained weight loss, or vaginal bleeding. OBJECTIVE: BP 141/65 Pulse (!) 58 Temp 36.4 ?C (97.5 ?F) (Oral) Wt 82.3 kg (181 lb 8 oz) BMI 30.20 kg/m? Female in no acute distress. Neck - Negative. Supraclavicular and axillary - Adenopathy absent. Respiratory - Clear to ausculation. Breasts - No masses. Abdominal - No CVA tenderness. The bowel sounds are positive. The abdomen is soft, nontender and there is no inguinal adenopathy. Pelvic - Normal vulva and vaginal cuff. A pap smear is obtained. Bimanual and rectovaginal exams reveal no masses. Binding Printer offered: Patient accepts, visit chaperoned by Alexa Toth RN IMPRESSION/PLAN: 04/25/2023 Dx: stage IA grade 1 endometrioid adenocarcinoma - Patient's recently (76yo) - A pap smear was obtained, will notify patient of results. - Breast exam was performed in clinic today with no abnormal findings. Patient is up to date on her mammogram. Another order will be placed for next year. - No clinical evidence of disease, patient will be seen in 12 months time. ATTESTATION: By signing my name below, Nadeen Gama, attest that this documentation has been prepared under the direction and in the presence of Ofelia Giang MD. Electronically signed: Chaka Montes, April 25, 2023 11:45 AM Provider Attestation: Ofelia Gama MD, personally performed the services described in this documentation. All medical record entries made by the scribe were at my direction and in my presence. I have reviewed the chart and discharge instructions (if applicable) and agree that the record reflects my personal performance and is accurate and complete. Ofelia Giang MD April 25, 2023 11:50 AM I have confirmed and edited as necessary, the history of the present illness (HPI). Interval changes in the history of present illness are noted. I have confirmed and edited as necessary, the PFSH and ROS obtained by others. I saw the patient and personally participated in the [place] components and agree with the documented findings and plan. Sincerely, Ofelia Giang M.D. Reviewed and corrected by Ofelia Giang M.D. The previous no (more content not included)... [facility] 04-21-2023 Miscellaneous Notes OK to refill as ordered Deborah Kendall MD Patient has been identified by name and date of : Yes Requested Prescriptions Pending Prescriptions Disp Refills lisinopril (ZESTRIL) 20 mg tablet 90 tablet 3 Sig: Take 1 tablet by mouth once daily. glimepiride (AMARYL) 4 mg tablet 90 tablet 3 Sig: Take 1 tablet by mouth daily with breakfast. RX INSTRUCTIONS: Patient aware RX escripted to mail away pharmacy. No need to notify patient. Tianna Munoz Pss documented in this encounter [facility] 04-04-2023 History of Present illness Narrative DATE OF SERVICE: 04/04/2023 PATIENT NAME: Pily Hendrix : 1950 AGE: 72 y.o. CLINIC NUMBER: [id number] Visit type: New Chief Complaint Patient presents with Skin Lesion New patient (ds) Subjective HISTORY OF PRESENT ILLNESS: This is a 72 y.o. 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 In [place]. Had several areas frozen on her back. Years ago. C/o-skin lesion located on the left hand x years . Denies itching, bleeding, pain. Denies changes in size, shape, color. Denies previous treatment. States if feel rough at times. C/o-skin lesion located on the right forearm x years . Denies itching, bleeding, pain. Denies changes in size, shape, color. Denies previous treatment. C/o moles on her back that she wants checked out. None itch bleed or burn. Had has several areas frozen in past on left side. Had several areas on chest frozen off as well I past History of pacemaker/ defibrillator? No History of HIV/ Hep C? No Allergies to Lidocaine, Epinephrine, Latex or Adhesive? No Social History:Occupation: retired . Born/raised in [place]. Outdoor sports: yes . 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 Patient does use additional sun protection measures. REVIEW OF SYSTEMS: General/Constitutional Feels well; denies h/o fatigue, weight change, night sweats, fevers or chills. Lymphatic Denies swollen lymph nodes. Dermatologic As per HPI; denies new rashes, itching, hair loss, skin or nail changes. There were no vitals filed for this visit. GENERAL APPEARANCE:?Alert & oriented x3, pleasant. Well developed, well nourished. PSYCH: appropriate mood and affect DERMATOLOGY: 1. Encounter for skin care SKIN TYPE: II Educated on signs of skin cancer, skin cancer causes, prevention, and risk of developing skin cancers in the future. Sun protection measures reviewed, recommended monthly self skin exams and annual full skin exam. 2. Seborrheic keratosis [place]-brown waxy papule(s) and plaque(s) Reassured that this is a benign lesion and does not require any treatment. Educated that if the lesion changes color, becomes larger, bleeds, becomes bothersome or painful then it should be reevaluated. Patient expresses understanding and is agreeable to plan. 3. Actinic keratoses (2) Left Dorsal Hand, Right Forearm - Anterior [place] scaly macule(s) Patient educated on actinic keratosis and the possibility of transformation into SCC. Treatment options are discussed with risks and benefits reviewed. Cryotherapy is agreed upon and performed. Reassured that redness, swelling and the formation of a blister at the site of cryotherapy are possible reactions. After care instructions are given and reviewed. Patient to apply Vaseline to treated sites while healing. Patient to monitor for resolution. If unresolved after 2-3 months, patient to return for further evaluation and management Cryotherapy Actinic Keratosis: Medical Necessity: It was explained to the patient that actinic keratoses are precancerous. Consent: The patient understood all the risks and benefits prior to treatment. The risks explained included scarring, hyper and/or hypopigmentation. Although this treatment is highly effective, recurrences do occur and this was explained to the patient. The patient further understood that these lesions are precancerous and may develop into a malignancy. Method: Liquid nitrogen was used to treat the lesion(s) with two freeze-thaw cycles. Post-op: The patient was instructed to clean the site normally twice a day. Signs of infection were reviewed and patient was instructed to call if he/ she develops increasing pain, purulent drainage, or beefy redness. The patient was informed that a blister may occur at the cryo site and that this is an expected event. Sun protection was reviewed and patient advised to use sunscreen with SPF 30 or greater on exposed skin when outdoors. Post-op instructions were given orally and in writing. Cryotherapy, skin lesion - Left Dorsal Hand, Right Forearm - Anterior 4. Seborrheic keratosis, inflamed (2) Left Flank, Left Lower Back [place] SCALY PLAQUE WITH SURROUNDING ERYTHEMA Reassured and educated, benign finding. However the lesion is rubbing on clothing and would like it treated or removed. Removal Benign Lesion: Reason for treatment: Patient wants removal due to increased irritation, rubbing on clothing, pain, itching, bleeding. Consent: The patient understood all the risks and benefits prior to treatment. The risks explained included scarring, hyper and/or hypo pigmentation. Although this treatment is highly effective, recurrences do occur and this was explained to the patient. The patient further understood that these lesions are benign and no specific treatment is necessarily indicated. Location 1: left back x1 Method: 2 freeze thaw cycles of liquid nitrogen one lesion Post-op: Post treatment instructions were given orally and in writing. The patient is instructed to cleanse the wound daily with soap and water, apply Vaseline and a bandage for one week. Signs of infection were discussed both orally and in writing. The patient was informed to call if any signs of infection develop such as increasing pain, purulent drainage or beefy redness. On this date, I have spent 30 minutes reviewing previous notes, test results and face to face with the patient discussing the diagnosis and importance of compliance with the treatment plan as well as documenting on the day of the visit. No follow-ups on file. Lidia Ponce PA-C 04/05/23 8:22 AM REFERRING MD: documented in this encounter [facility] 03-15-2023 Note HNO ID: [id number] Author: RT Gita(R) Service: Nuclear Medicine Author Type: Technologist Type: Progress Notes Filed: 03/15/2023 4:04 PM Note Text: Radiology Service Progress Note PATIENT NAME: Pily Hendrix DATE OF SERVICE: March 15, 2023 TIME: 3:57 PM PATIENT IDENTITY VERIFICATION COMPLETED USING TWO (2) IDENTIFIERS: Name and Date of confirmed by patient verbally. FALL SCREENING: Has the patient had 2 falls in the last year or 1 fall with injury or currently using an Ambulatory Assistive Device (Walker, Cane, Wheelchair, Crutches, etc.)? No PATIENT GENDER DATA: Female. status: : No status: NO. PATIENT RELEVANT IMPLANT DATA REVIEWED: Not Applicable RADIOLOGY DEPARTMENT: General X-ray: Exam(s) Completed: Upper Extremity X-Ray(s): Wrist, right PERIPHERAL IV DATA: Not applicable SIGNED BY: RT Gita(R) March 15, 2023 3:57 PM [facility] 03-15-2023 Note HNO ID: [id number] Author: Sandoval Cummins APRN.PILLOW AGENT Service: ? Author Type: Nurse Practitioner Type: Progress Notes Filed: 03/15/2023 4:24 PM Note Text: Subjective HPI Nontoxic-appearing female presents urgent care chief complaint right wrist pain. Duration of symptoms 1 week. Associated symptoms right wrist pain. Patient states he was unloading a riding mower when the steering wheel turned striking her on the ulnar aspect of right wrist. Presents today for evaluation. States pain has been staying persistent improved has not worsened. Pain is worse with movement or palpation improved by rest. Denies any numbness no tingling no decreased sensation. Past medical history prescription medication use allergies reviewed. .Patient presents with: Wrist Pain: right x 1 week, unloading a riding mower PAST MEDICAL HISTORY Diagnosis Date Actinic skin damage 03/04/2013 Kim angioma 02/28/2014 Chronic pain of left knee 10/13/2016 Cutaneous skin tags 03/04/2013 Degeneration of lumbar or lumbosacral intervertebral disc 03/24/2009 Worst at L5-S1; Chronic low back pain Diabetes (HCC) Essential hypertension 08/22/2005 Atenolol started 1996. HCTZ added 02/19. 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 Obesity, unspecified 03/19/2009 Other seborrheic keratosis 02/10/2010 Solar lentigo 02/10/2010 Stucco keratosis 03/04/2013 Trochanteric bursitis of left hip 10/13/2016 Viral warts, unspecified 03/04/2013 Xerosis cutis 03/04/2013 PAST SURGICAL HISTORY Procedure Laterality Date CHOLECYSTECTOMY 2003 laparoscopic COLONOSCOPY FLX DX W/COLLJ SPEC WHEN PFRMD 05/19/15 Colonoscopy HYSTEROSCOPY DX 12/2016 HYSTEROSCOPY W/REMOVAL OF LEIOMYOMATA 01/04/2017 LAP VAG HYST UTERUS<250 W/BSO Bilateral 03/03/2017 LIG/TRNSXJ FLP TUBE ABDL/VAG APPR UNI/BI PAST SURGICAL HISTORY OF excision mass left shoulder ALLERGIES Doxy [Doxycycline Hyclate], Metformin, and Penicillin G MEDICATIONS atenolol (TENORMIN) 50 mg tablet TAKE 1 TABLET DAILY omeprazole (PRILOSEC) 20 mg capsule TAKE 1 CAPSULE DAILY 30 MINUTES BEFORE BREAKFAST hydroCHLOROthiazide (HYDRODIURIL, ESIDRIX) 25 mg tablet Take 1 tablet by mouth once daily. atorvastatin (LIPITOR) 20 mg tablet TAKE 1 TABLET DAILY glimepiride (AMARYL) 4 mg tablet Take 1 tablet by mouth daily with breakfast. glimepiride (AMARYL) 4 mg tablet Take 1 tablet by mouth daily with breakfast. lisinopril (ZESTRIL, PRINIVIL) 20 mg tablet Take 1 tablet by mouth once daily. celecoxib (CELEBREX) 100 mg capsule Take 1 capsule by mouth twice daily. (Patient not taking: Reported on 12/28/2021 ) FAMILY HISTORY Problem Relation Age of Onset Diabetes Mother Heart Father Hypertension Father Diabetes Paternal Grandmother Social History Tobacco Use Smoking status: Never Smokeless tobacco: Never Vaping Use Vaping Use: Never used Substance Use Topics Alcohol use: Yes Comment: OCCASIONAL < 1/week Drug use: No BP 128/76 Pulse 70 Temp 36.4 ?C (97.6 ?F) Resp 16 Wt 83 kg (183 lb) SpO2 98% BMI 30.45 kg/m? Review of Systems Constitutional: Negative for chills, fever and malaise/fatigue. HENT: Negative for congestion, ear discharge, ear pain, sinus pain and sore throat. Eyes: Negative for blurred vision, pain, discharge and redness. Respiratory: Negative for cough, hemoptysis, sputum production, shortness of breath, wheezing and stridor. Cardiovascular: Negative for chest pain. Gastrointestinal: Negative for abdominal pain, diarrhea, nausea and vomiting. Musculoskeletal: Positive for joint pain. Negative for back pain, falls, myalgias and neck pain. Skin: Negative for itching and rash. Neurological: Negative for dizziness and headaches. Objective Physical Exam Constitutional: General: She is not in acute distress. Appearance: She is not diaphoretic. HENT: Head: Normocephalic. Eyes: Conjunctiva/sclera: Conjunctivae normal. Pupils: Pupils are equal, round, and reactive to light. Cardiovascular: Rate and Rhythm: Normal rate and regular rhythm. Heart sounds: Normal heart sounds. Pulmonary: Effort: Pulmonary effort is normal. No tachypnea, accessory muscle usage or respiratory distress. Breath sounds: Normal breath sounds. No stridor. No wheezing, rhonchi or rales. Musculoskeletal: Right elbow: Normal. Right forearm: Normal. Right wrist: Swelling present. No tenderness, bony tenderness or snuff box tenderness. Normal range of motion. Normal pulse. Right hand: Normal. Cervical back: Normal range of motion. Comments: Neurovascular intact no breaks in skin. Skin: General: Skin is warm and dry. Neurological: (more content not included)... [facility] 02-25-2023 Miscellaneous Notes Patient returned call and given provider's message below with verbalized understanding. Unable to reach patient. Left VM to return call to office. Please read below and advise. Macarena Yung MA Please let the patient know that her CBC was normal. Kidney function, liver enzymes were normal. Cholesterol panel was good. Hgb A1c improved from 7.8 to 7.6%. Continue current medications. Joel Neumann APRN.HARPER documented in this encounter [facility] 02-24-2023 Miscellaneous Notes OK to refill as ordered Deborah Kendall MD Patient has been identified by name and date of : Yes Requested Prescriptions Pending Prescriptions Disp Refills atenolol (TENORMIN) 50 mg tablet [Pharmacy Med Name: ATENOLOL TABS 50MG] 90 tablet 3 Sig: TAKE 1 TABLET DAILY RX INSTRUCTIONS: Patient aware RX will be sent to pharmacy. No need to notify patient. Jesi Healy MA Kye 11/2022 No appointment Last refill: 02/2022 documented in this encounter [facility] 02-21-2023 Miscellaneous Notes Patient notified of results. Macarena Yung MA Labs ordered Deborah Kendall MD Patient came in to get lab work done. She only had A1C lab placed, she said that she wanted all the labs done: potassium, cholesterol, iron, all of the labs. Please advise and call patient regarding orders. documented in this encounter [facility] 02-15-2023 Note Patient Outreach (IN TMMN) PILY HENDRIX ([id number]) 1950 F NFR Date Time Provider Department 02/15/23 DEBORAH KENDALL During your visit today, we recorded the following information about you: Allergies As of Date: 02/15/2023 Noted Allergy Reaction DOXY (DOXYCYCLINE HYCLATE) 03/24/2006 5 - Intolerance Comments: skin sensation - cold and/or hot. no rash. METFORMIN 10/15/2019 14 - Other: See Comments Comments: leg pain PENICILLIN G 08/03/2005 Date Reviewed: 12/13/2022 Reviewed by: Bianca Gar Ma - Fully Assessed Visit Diagnosis:Diabetes (HCC) [E11.9] Order(s):HGB A1C [MHEUE1T] Order #: [id number] FUTURE Prescriptions as of 02/18/2023 - omeprazole (PRILOSEC) 20 mg capsule TAKE 1 CAPSULE DAILY 30 MINUTES BEFORE BREAKFAST - hydroCHLOROthiazide (HYDRODIURIL, ESIDRIX) 25 mg tablet Take 1 tablet by mouth once daily. - atorvastatin (LIPITOR) 20 mg tablet TAKE 1 TABLET DAILY - glimepiride (AMARYL) 4 mg tablet Take 1 tablet by mouth daily with breakfast. - glimepiride (AMARYL) 4 mg tablet Take 1 tablet by mouth daily with breakfast. - lisinopril (ZESTRIL, PRINIVIL) 20 mg tablet Take 1 tablet by mouth once daily. - atenolol (TENORMIN) 50 mg tablet Take 1 tablet by mouth once daily. - celecoxib (CELEBREX) 100 mg capsule Take 1 capsule by mouth twice daily. Meds Comments as of 12/13/2022: OTC Takes Vitamin D3 daily. Problem List As Of Date 02/15/2023 Noted Resolved Generalized osteoarthritis [M15.9] 08/22/2005 Essential hypertension [I10] 08/22/2005 [facility]19[facility]2009 02/05/2015 Class: Chronic Routine gynecological examination [Z01.419] 03/19/2009 02/05/2015 Class: Chronic Impaired fasting glucose [R73.01] 03/19/2009 12/27/2016 OBESITY NOS [E66.9] 03/19/2009 LUMB/LUMBOSAC DISC DEGEN [M51.37] 03/24/2009 Intradermal Nevus: L lower forehead face [D23.9]02/10/2010 12/21/2016 Melanocytic Nevus of Face: Intradermal Nevus [D*02/10/2010 12/21/2016 Irritated//Inflamed Seborrheic Keratoses [L82.0]02/10/2010 12/21/2016 Other seborrheic keratosis [L82.1] 02/10/2010 12/21/2016 Solar lentigo [L81.4] 02/10/2010 12/21/2016 Viral warts, unspecified [B07.9] 03/04/2013 12/21/2016 Cutaneous skin tags [L91.8] 03/04/2013 12/21/2016 Stucco keratosis [L85.1] 03/04/2013 12/21/2016 Actinic skin damage [L57.8] 03/04/2013 12/21/2016 Xerosis cutis [L85.3] 03/04/2013 12/21/2016 Nevus lipomatosus cutaneous superficialis [D17.*03/04/2013 12/21/2016 Kim angioma [D18.01] 02/28/2014 12/21/2016 Hyperlipidemia [E78.5] 02/05/2015 Chronic pain of left knee [M25.562, G89.29] 10/13/2016 Trochanteric bursitis of left hip [M70.62] 10/13/2016 12/21/2016 Diabetes (HCC) [E11.9] Endometrial adenocarcinoma (HCC) [C54.1] 03/23/2017 Elevated ferritin [R79.89] 03/19/2019 Encounter Status:Closed by SANDRA LUTHER on 02/18/23 [facility] 01-03-2023 Miscellaneous Notes The following approved medication requests have been transmitted electronically. Requested Prescriptions Pending Prescriptions Disp Refills omeprazole (PRILOSEC) 20 mg capsule 90 capsule 3 Sig: TAKE 1 CAPSULE DAILY 30 MINUTES BEFORE BREAKFAST Joel Thien, DIGITAL PRODUCT SPECIALIST.PILLOW AGENT Patient has been identified by name and date of : Pharmacy phones for refill(s): Requested Prescriptions Pending Prescriptions Disp Refills omeprazole (PRILOSEC) 20 mg capsule 90 capsule 3 Sig: TAKE 1 CAPSULE DAILY 30 MINUTES BEFORE BREAKFAST Date of last office visit in primary care: 12/13/2022, no future appt scheduled Last 2 Encounter Wt Readings: Date: Wt: 12/13/2022 82.6 kg (182 lb) 12/21/2021 85.9 kg (189 lb 6.4 oz) Previous labs/tests for medication: Not applicable Please advise. Thank you. Nimo Vora LPN documented in this encounter [facility] 12-15-2022 Miscellaneous Notes December 16, 2022 PID: [id number] Pily Hendrix [id number] [id number] Dear Ms. Hendrix, We are pleased to inform you that the results of your recent breast imaging exam on 12/14/2022 are normal. Early detection of cancer is very important. We also understand recommendations regarding breast cancer screening are controversial. Please discuss with your primary care provider which strategy is best for you and whether a mammogram is right for you. Your imaging studies and report will be kept on file at [facility] as part of your permanent medical record and are available for your continuing care. Thank you for allowing us to help in meeting your health care needs. Sincerely, Dr. Watson Interpreting Radiologist [facility] (Normal over 40) documented in this encounter [facility] 12-14-2022 Note HNO ID: [id number] Author: RT David(R) Service: ? Author Type: Technologist Type: Progress Notes Filed: 12/14/2022 8:43 AM Note Text: Radiology Service Progress Note PATIENT NAME: Pily Hendrix DATE OF SERVICE: December 14, 2022 TIME: 8:28 AM PATIENT IDENTITY VERIFICATION COMPLETED USING TWO (2) IDENTIFIERS: Name and Date of confirmed by patient verbally. FALL SCREENING: Has the patient had 2 falls in the last year or 1 fall with injury or currently using an Ambulatory Assistive Device (Walker, Cane, Wheelchair, Crutches, etc.)? No PATIENT GENDER DATA: Female. status: : No status: NO. PATIENT RELEVANT IMPLANT DATA REVIEWED: Not Applicable RADIOLOGY DEPARTMENT: Mammography PERIPHERAL IV DATA: Not applicable SIGNED BY: RT David(R) December 14, 2022 8:28 AM [facility] 12-14-2022 Miscellaneous Notes Patient notified of results and provider's instructions. Patient verbalizes understanding. Marium Ayala RN Called and left a voicemail for the Patient to call back and ask for a nurse to receive the providers message. Tatianna Hobbs RN Please notify patient that er Covid test is negative, so it is probably a different virus that is causing her illness. I would recommend continuing with symptomatic treatment for the next few days; let me know if she is not improving. If her fever stays down today and she is feeling better she may return to work tomorrow. Deborah Kendall MD documented in this encounter [facility] 12-14-2022 History of Present illness Narrative Radiology Service Progress Note PATIENT NAME: Pily Hendrix DATE OF SERVICE: December 14, 2022 TIME: 8:28 AM PATIENT IDENTITY VERIFICATION COMPLETED USING TWO (2) IDENTIFIERS: Name and Date of confirmed by patient verbally. FALL SCREENING: Has the patient had 2 falls in the last year or 1 fall with injury or currently using an Ambulatory Assistive Device (Walker, Cane, Wheelchair, Crutches, etc.)? No PATIENT GENDER DATA: Female. status: : No status: NO. PATIENT RELEVANT IMPLANT DATA REVIEWED: Not Applicable RADIOLOGY DEPARTMENT: Mammography PERIPHERAL IV DATA: Not applicable SIGNED BY: RT David(R) December 14, 2022 8:28 AM documented in this encounter [facility] 12-13-2022 Note HNO ID: [id number] Author: Deborah Kendall MD Service: ? Author Type: Physician Type: Progress Notes Filed: 12/13/2022 5:35 PM Note Text: Chief Complaint Patient presents with: Sore Throat HPI Pily Hendrix is a 72 year old female who presents here today for a same day visit. Pt c/o of a sore throat x 1 day. Pt states that yesterday she started with a slight sore throat that is now a painful, raw sore throat. She also has symptoms of runny nose, body aches, cough and feels tired. States she took her temp at home and it was normal. In office she was 100 F. Pt denies taking anything and states that she's been laying around. Did not do Covid test. No known exposure. Requests routine labs; 2 months ago, she would like to have kidney function, liver, lipids, etc checked. Last labs were one year ago. Past medical history, appointments, medications, allergies reviewed. Previous Medical History PAST MEDICAL HISTORY Diagnosis Date Actinic skin damage 03/04/2013 Kim angioma 02/28/2014 Chronic pain of left knee 10/13/2016 Cutaneous skin tags 03/04/2013 Degeneration of lumbar or lumbosacral intervertebral disc 03/24/2009 Worst at L5-S1; Chronic low back pain Diabetes (HCC) Essential hypertension 08/22/2005 Atenolol started 1996. HCTZ added 02/19. 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 Obesity, unspecified 03/19/2009 Other seborrheic keratosis 02/10/2010 Solar lentigo 02/10/2010 Stucco keratosis 03/04/2013 Trochanteric bursitis of left hip 10/13/2016 Viral warts, unspecified 03/04/2013 Xerosis cutis 03/04/2013 Previous Surgical History PAST SURGICAL HISTORY Procedure Laterality Date CHOLECYSTECTOMY 2003 laparoscopic COLONOSCOPY FLX DX W/COLLJ SPEC WHEN PFRMD 05/19/15 Colonoscopy HYSTEROSCOPY DX 12/2016 HYSTEROSCOPY W/REMOVAL OF LEIOMYOMATA 01/04/2017 LAP VAG HYST UTERUS<250 W/BSO Bilateral 03/03/2017 LIG/TRNSXJ FLP TUBE ABDL/VAG APPR UNI/BI PAST SURGICAL HISTORY OF excision mass left shoulder Family History FAMILY HISTORY Problem Relation Age of Onset Diabetes Mother Heart Father Hypertension Father Diabetes Paternal Grandmother Patient Allergies ALLERGIES Allergen Reactions Doxy [Doxycycline H* Intolerance skin sensation - cold and/or hot. no rash. Metformin Other: See Comments leg pain Penicillin G Current Medications Current Outpatient Medications on File Prior to Visit Medication Sig hydroCHLOROthiazide (HYDRODIURIL, ESIDRIX) 25 mg tablet Take 1 tablet by mouth once daily. atorvastatin (LIPITOR) 20 mg tablet TAKE 1 TABLET DAILY glimepiride (AMARYL) 4 mg tablet Take 1 tablet by mouth daily with breakfast. glimepiride (AMARYL) 4 mg tablet Take 1 tablet by mouth daily with breakfast. lisinopril (ZESTRIL, PRINIVIL) 20 mg tablet Take 1 tablet by mouth once daily. atenolol (TENORMIN) 50 mg tablet Take 1 tablet by mouth once daily. omeprazole (PRILOSEC) 20 mg capsule TAKE 1 CAPSULE DAILY 30 MINUTES BEFORE BREAKFAST celecoxib (CELEBREX) 100 mg capsule Take 1 capsule by mouth twice daily. (Patient not taking: Reported on 12/28/2021 ) No current facility-administered medications on file prior to visit. Social History Social History Tobacco Use Smoking status: Never Smokeless tobacco: Never Vaping Use Vaping Use: Never used Substance Use Topics Alcohol use: Yes Comment: OCCASIONAL < 1/week Drug use: No EXAM: BP 134/86 (BP Site: Left Arm, BP Position: Sitting, BP Cuff Size: Large Adult) Pulse 74 Temp 37.8 ?C (100 ?F) (Tympanic) Resp 18 Wt 82.6 kg (182 lb) BMI 30.29 kg/m? General Appearance: Mildly ill, slight cough. Ears: External ears normal, canals clear. Oropharynx: mild diffuse erythema. Neck: Supple, no adenopathy; thyroid symmetric, normal size, no bruits. Lungs: Lungs clear to auscultation. No wheezing, rhonchi, rales.. Heart: RRR without murmur, gallop, or rubs. No ectopy. Health Maintenance List PNEUMOCOCCAL: 65+(1 - PCV) Never done DILATED RETINAL EXAM Never done SHINGRIX VACCINE(1 of 2) Never done DTAP,TDAP,TD(2 - Tdap) due on 11/17/2013 BP CONTROLLED (<130/80) due on 03/19/2020 DIABETIC FOOT EXAM due on 09/20/2020 COVID-19 VACCINE(4 - Booster for Moderna series) due on 10/29/2021 URINE ALBUMIN:CREATININE RATIO due on 10/31/2021 MAMMOGRAM due on 03/20/2022 HBA1C due on 05/25/2022 INFLUENZA(1) due on 06/17/2022 ADVANCE DIRECTIVE DISCUSSION Never done DEPRESSION ASSESSMENT Never done ANNUAL PCP TEAM CHRONIC DISEASE VISIT due on 11/26/2022 LDL CHOLESTEROL due on 11/25/2022 COLORECTAL CANCER SCREENING due on 05/19/2025 BONE DENSITY Completed HEP (more content not included)... [facility] 12-13-2022 History of Present illness Narrative Chief Complaint Patient presents with: Sore Throat HPI Pily Hendrix is a 72 year old female who presents here today for a same day visit. Pt c/o of a sore throat x 1 day. Pt states that yesterday she started with a slight sore throat that is now a painful, raw sore throat. She also has symptoms of runny nose, body aches, cough and feels tired. States she took her temp at home and it was normal. In office she was 100 F. Pt denies taking anything and states that she's been laying around. Did not do Covid test. No known exposure. Requests routine labs; 2 months ago, she would like to have kidney function, liver, lipids, etc checked. Last labs were one year ago. Past medical history, appointments, medications, allergies reviewed. Previous Medical History PAST MEDICAL HISTORY Diagnosis Date Actinic skin damage 03/04/2013 Kim angioma 02/28/2014 Chronic pain of left knee 10/13/2016 Cutaneous skin tags 03/04/2013 Degeneration of lumbar or lumbosacral intervertebral disc 03/24/2009 Worst at L5-S1; Chronic low back pain Diabetes (HCC) Essential hypertension 08/22/2005 Atenolol started 1996. HCTZ added 02/19. 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 Obesity, unspecified 03/19/2009 Other seborrheic keratosis 02/10/2010 Solar lentigo 02/10/2010 Stucco keratosis 03/04/2013 Trochanteric bursitis of left hip 10/13/2016 Viral warts, unspecified 03/04/2013 Xerosis cutis 03/04/2013 Previous Surgical History PAST SURGICAL HISTORY Procedure Laterality Date CHOLECYSTECTOMY 2003 laparoscopic COLONOSCOPY FLX DX W/COLLJ SPEC WHEN PFRMD 05/19/15 Colonoscopy HYSTEROSCOPY DX 12/2016 HYSTEROSCOPY W/REMOVAL OF LEIOMYOMATA 01/04/2017 LAP VAG HYST UTERUS<250 W/BSO Bilateral 03/03/2017 LIG/TRNSXJ FLP TUBE ABDL/VAG APPR UNI/BI PAST SURGICAL HISTORY OF excision mass left shoulder Family History FAMILY HISTORY Problem Relation Age of Onset Diabetes Mother Heart Father Hypertension Father Diabetes Paternal Grandmother Patient Allergies ALLERGIES Allergen Reactions Doxy [Doxycycline H* Intolerance skin sensation - cold and/or hot. no rash. Metformin Other: See Comments leg pain Penicillin G Current Medications Current Outpatient Medications on File Prior to Visit Medication Sig hydroCHLOROthiazide (HYDRODIURIL, ESIDRIX) 25 mg tablet Take 1 tablet by mouth once daily. atorvastatin (LIPITOR) 20 mg tablet TAKE 1 TABLET DAILY glimepiride (AMARYL) 4 mg tablet Take 1 tablet by mouth daily with breakfast. glimepiride (AMARYL) 4 mg tablet Take 1 tablet by mouth daily with breakfast. lisinopril (ZESTRIL, PRINIVIL) 20 mg tablet Take 1 tablet by mouth once daily. atenolol (TENORMIN) 50 mg tablet Take 1 tablet by mouth once daily. omeprazole (PRILOSEC) 20 mg capsule TAKE 1 CAPSULE DAILY 30 MINUTES BEFORE BREAKFAST celecoxib (CELEBREX) 100 mg capsule Take 1 capsule by mouth twice daily. (Patient not taking: Reported on 12/28/2021 ) No current facility-administered medications on file prior to visit. Social History Social History Tobacco Use Smoking status: Never Smokeless tobacco: Never Vaping Use Vaping Use: Never used Substance Use Topics Alcohol use: Yes Comment: OCCASIONAL < 1/week Drug use: No EXAM: BP 134/86 (BP Site: Left Arm, BP Position: Sitting, BP Cuff Size: Large Adult) Pulse 74 Temp 37.8 C (100 F) (Tympanic) Resp 18 Wt 82.6 kg (182 lb) BMI 30.29 kg/m General Appearance: Mildly ill, slight cough. Ears: External ears normal, canals clear. Oropharynx: mild diffuse erythema. Neck: Supple, no adenopathy; thyroid symmetric, normal size, no bruits. Lungs: Lungs clear to auscultation. No wheezing, rhonchi, rales.. Heart: RRR without murmur, gallop, or rubs. No ectopy. Health Maintenance List PNEUMOCOCCAL: 65+(1 - PCV) Never done DILATED RETINAL EXAM Never done SHINGRIX VACCINE(1 of 2) Never done DTAP,TDAP,TD(2 - Tdap) due on 11/17/2013 BP CONTROLLED (<130/80) due on 03/19/2020 DIABETIC FOOT EXAM due on 09/20/2020 COVID-19 VACCINE(4 - Booster for Moderna series) due on 10/29/2021 URINE ALBUMIN:CREATININE RATIO due on 10/31/2021 MAMMOGRAM due on 03/20/2022 HBA1C due on 05/25/2022 INFLUENZA(1) due on 06/17/2022 ADVANCE DIRECTIVE DISCUSSION Never done DEPRESSION ASSESSMENT Never done ANNUAL PCP TEAM CHRONIC DISEASE VISIT due on 11/26/2022 LDL CHOLESTEROL due on 11/25/2022 COLORECTAL CANCER SCREENING due on 05/19/2025 BONE DENSITY Completed HEPATITIS C SCREENING Completed Data reviewed None ASSESSMENT/PLAN: 1. URI, acute - ICD9: 465.9, ICD10: J06.9 (primary diagnosis) - Discussed viral etiology and rationale for treatment. - Symptomatic treatment with prn analgesia - Supportive care with fluids and rest - COVID WITH FLUA+B, ROUTINE - Consider paxlovid if Covid + 2. Essential hypertension - ICD9: 401.9, ICD10: I10 - COMP METABOLIC PANEL - CBC - LIPID PANEL BASIC 3. Hyperlipidemia, unspecified hyperlipidemia type - ICD9: 272.4, ICD10: E78.5 - COMP METABOLIC PANEL - LIPID PANEL BASIC 4. Type 2 diabetes mellitus without complication, unspecified whether long term care phlebotomist insulin use (HCC) - ICD9: 250.00, ICD10: E11.9 - LIPID PANEL BASIC - HGB A1C - ALBUMIN/CREAT RATIO RND UR Notify of lab results Follow up as needed Medical Decision Making: Problems: Low: Acute, uncomplicated illness or injury Data: Unique test(s) ordered: 3+ Risk: Moderate: Drug management Medical Decision Making Level: 4 - Moderate Deborah Kendall MD documented in this encounter [facility] 12-01-2022 Note Patient Outreach (IN TMMN) PILY HENDRIX ([id number]) 1950 F NFR Date Time Provider Department 12/01/22 DEBORAH KENDALL INTNANNETTE During your visit today, we recorded the following information about you: Allergies As of Date: 12/01/2022 Noted Allergy Reaction DOXY (DOXYCYCLINE HYCLATE) 03/24/2006 5 - Intolerance Comments: skin sensation - cold and/or hot. no rash. METFORMIN 10/15/2019 14 - Other: See Comments Comments: leg pain PENICILLIN G 08/03/2005 Date Reviewed: 12/28/2021 Reviewed by: George Tse MD - Fully Assessed Visit Diagnosis:Encounter for screening mammogram for breast cancer [Z12.31] Order(s):[facility] SCREENING [[id number]] Order #: [id number] FUTURE Prescriptions as of 12/06/2022 - hydroCHLOROthiazide (HYDRODIURIL, ESIDRIX) 25 mg tablet Take 1 tablet by mouth once daily. - atorvastatin (LIPITOR) 20 mg tablet TAKE 1 TABLET DAILY - glimepiride (AMARYL) 4 mg tablet Take 1 tablet by mouth daily with breakfast. - glimepiride (AMARYL) 4 mg tablet Take 1 tablet by mouth daily with breakfast. - lisinopril (ZESTRIL, PRINIVIL) 20 mg tablet Take 1 tablet by mouth once daily. - atenolol (TENORMIN) 50 mg tablet Take 1 tablet by mouth once daily. - omeprazole (PRILOSEC) 20 mg capsule TAKE 1 CAPSULE DAILY 30 MINUTES BEFORE BREAKFAST - celecoxib (CELEBREX) 100 mg capsule Take 1 capsule by mouth twice daily. Problem List As Of Date 12/01/2022 Noted Resolved Generalized osteoarthritis [M15.9] 08/22/2005 Essential hypertension [I10] 08/22/2005 [facility] 02/05/2015 Class: Chronic Routine gynecological examination [Z01.419] 03/19/2009 02/05/2015 Class: Chronic Impaired fasting glucose [R73.01] 03/19/2009 12/27/2016 OBESITY NOS [E66.9] 03/19/2009 LUMB/LUMBOSAC DISC DEGEN [M51.37] 03/24/2009 Intradermal Nevus: L lower forehead face [D23.9]02/10/2010 12/21/2016 Melanocytic Nevus of Face: Intradermal Nevus [D*02/10/2010 12/21/2016 Irritated//Inflamed Seborrheic Keratoses [L82.0]02/10/2010 12/21/2016 Other seborrheic keratosis [L82.1] 02/10/2010 12/21/2016 Solar lentigo [L81.4] 02/10/2010 12/21/2016 Viral warts, unspecified [B07.9] 03/04/2013 12/21/2016 Cutaneous skin tags [L91.8] 03/04/2013 12/21/2016 Stucco keratosis [L85.1] 03/04/2013 12/21/2016 Actinic skin damage [L57.8] 03/04/2013 12/21/2016 Xerosis cutis [L85.3] 03/04/2013 12/21/2016 Nevus lipomatosus cutaneous superficialis [D17.*03/04/2013 12/21/2016 Kim angioma [D18.01] 02/28/2014 12/21/2016 Hyperlipidemia [E78.5] 02/05/2015 Chronic pain of left knee [M25.562, G89.29] 10/13/2016 Trochanteric bursitis of left hip [M70.62] 10/13/2016 12/21/2016 Diabetes (HCC) [E11.9] Endometrial adenocarcinoma (HCC) [C54.1] 03/23/2017 Elevated ferritin [R79.89] 03/19/2019 Encounter Status:Closed by SANDRA LUTHER on 12/06/22 [facility] 07-27-2022 History of Present illness Narrative POPULATION HEALTH NAVIGATION OUTREACH Action/FYI: [employer] Care Gaps 07/27/22 Discuss/due: ~PCP follow up ~MyChart activation ~RADHA ~BP Control ~AD Discussion ~Albumin ~HgBA1C ~Flu vaccine ~Mammogram Outcome: ~Left voice mail for patient Pt identified by name and : NO Outreach Outcome/Action Unable to reach patient: Left message Did you use a PCP flex slot to schedule this appointment? N/A Reason for Outreach Care Gap or Scheduling/Wellness visits Payer: No coverage found. Care Gap Reviewed:: Follow-up appointment Breast Cancer screening Controlling Blood Pressure Colorectal Cancer Screening Diabetic Eye Exam HBA1C Nephropathy (Albumin/Creatinine) Urine Flu vaccine Reminder: Reminder note to check Health Maintenance for items below Health Maintenance items due: PNEUMOCOCCAL: 65+(1 - PCV) Never done DILATED RETINAL EXAM Never done SHINGRIX VACCINE(1 of 2) Never done DTAP,TDAP,TD(2 - Tdap) due on 11/17/2013 BP CONTROLLED (<130/80) due on 03/19/2020 DIABETIC FOOT EXAM due on 09/20/2020 ADVANCE DIRECTIVE DISCUSSION Never done DEPRESSION ASSESSMENT Never done COVID-19 VACCINE(4 - Booster for Moderna series) due on 10/29/2021 URINE ALBUMIN:CREATININE RATIO due on 10/31/2021 MAMMOGRAM due on 03/20/2022 HBA1C due on 05/25/2022 INFLUENZA(1) due on 06/17/2022 Message Sent to Practice: No Navigation Signature: Floresita Espinoza Population Health Navigator July 27, 2022 3:38 PM documented in this encounter [facility] 06-07-2022 Miscellaneous Notes Pt notified. OK to refill as ordered Deborah Kendall MD Patient called to check on the status of this refill request. She is completely out of medication now. She still wants the mail order request sent, but will also need a short term refill to [facility] in [place]. She would like a call at [phone] when sent. Patient has been identified by name and date of : Yes She is completely out of medication now. She still wants the mail order request sent, but will also need a short term refill to [facility] in [place]. She would like a call at [phone] when sent. Requested Prescriptions Pending Prescriptions Disp Refills glimepiride (AMARYL) 4 mg tablet 90 tablet 3 Sig: Take 1 tablet by mouth daily with breakfast. Patient has only a few left. RX INSTRUCTIONS: Patient aware RX will be sent to pharmacy. No need to notify patient. Marry Nina documented in this encounter [facility] 06-04-2022 History of Present illness Narrative POPULATION HEALTH NAVIGATION OUTREACH Action/FYI [employer] Care Gaps Discuss/Due for: Hgb a1c, Urine Albumin: Creatinine Ratio, Advance Directives, Dilated Retinal Exam, Mammogram Screening, MyChart Activation, Follow Up with Deborah Kendall MD Outcome: 1st attempt - Left Message 2nd attempt - No MyChart Pt identified by name and : NO Outreach Outcome/Action Unable to reach patient: Left message Did you use a PCP flex slot to schedule this appointment? N/A Reason for Outreach Care Gap or Scheduling/Wellness visits Payer: No coverage found. Care Gap Reviewed:: Follow-up appointment Breast Cancer screening Diabetic Eye Exam HBA1C Nephropathy (Albumin/Creatinine) Urine Reminder: Reminder note to check Health Maintenance for items below Health Maintenance items due: PNEUMOCOCCAL: 65+(1 - PCV) Never done DILATED RETINAL EXAM Never done SHINGRIX VACCINE(1 of 2) Never done DTAP,TDAP,TD(2 - Tdap) due on 11/17/2013 BP CONTROLLED (<130/80) due on 03/19/2020 DEPRESSION SCREENING due on 03/19/2020 DIABETIC FOOT EXAM due on 09/20/2020 ADVANCE DIRECTIVE DISCUSSION Never done URINE ALBUMIN:CREATININE RATIO due on 10/31/2021 COVID-19 VACCINE(4 - Booster for Moderna series) due on 01/01/2022 MAMMOGRAM due on 03/20/2022 HBA1C due on 05/25/2022 Message Sent to Practice: No Navigation Signature: Jessica Orozco MA June 04, 2022 7:56 AM documented in this encounter [facility] 04-12-2022 Miscellaneous Notes The following approved medication requests have been transmitted electronically. Signed Prescriptions Disp Refills lisinopril (ZESTRIL, PRINIVIL) 20 mg tablet 90 tablet 3 Sig: Take 1 tablet by mouth once daily. CLAIRE: No Authorizing Provider: DEBORAH KENDALL Ma OK to refill as ordered Deborah Kendall MD Patient has been identified by name and date of : Yes Pending Prescriptions Disp Refills LISINOPRIL 20 MG TABLET 90 tablet 3 Sig: Take 1 tablet by mouth once daily. CLAIRE: No RX INSTRUCTIONS: Patient aware RX will be sent to pharmacy. Please call patient when complete. Marry Nina documented in this encounter [facility] 03-01-2022 Miscellaneous Notes The following approved medication requests have been transmitted electronically. Pending Prescriptions Disp Refills ATENOLOL 50 MG TABLET 90 tablet 3 Sig: Take 1 tablet by mouth once daily. CLAIRE: No Joel Neumann APRN.PILLOW AGENT Patient phones requesting refills as follows: Pending Prescriptions Disp Refills ATENOLOL 50 MG TABLET 90 tablet 3 Sig: Take 1 tablet by mouth once daily. CLAIRE: No KYE-11/26/21 Labs-11/25/21 NOV-05/27/22 med filled 06/16/20 Please review and advise. Nalini Ashotn LPN Patient has been identified by name and date of : Yes Last office visit in this department: 11/26/2021 RX INSTRUCTIONS: Patient aware RX will be sent to pharmacy. No need to notify patient. Patient phones requesting refills as follows: No medications selected for refill. Please review and advise. Carissa Mata Pss documented in this encounter [facility] 02-03-2022 History of Present illness Narrative POPULATION HEALTH NAVIGATION OUTREACH Action/FYI: [employer] Care Gaps Discuss/Due: Advance Directives Dilated Retinal Exam Breast Cancer Screening due 03/21/22 or after Outcome: Left voice mail with my direct number Pt identified by name and : NO Outreach Outcome/Action Unable to reach patient: Left message Reason for Outreach Care Gap or Scheduling/Wellness visits Payer: No coverage found. Care Gap Reviewed:: Breast Cancer screening Diabetic Eye Exam Reminder: Reminder note to check Health Maintenance for items below Health Maintenance items due: DILATED RETINAL EXAM Never done SHINGRIX VACCINE(1 of 2) Never done DTAP,TDAP,TD(2 - Tdap) due on 11/17/2013 BP CONTROLLED (<130/80) due on 03/19/2020 DEPRESSION SCREENING due on 03/19/2020 DIABETIC FOOT EXAM due on 09/20/2020 ADVANCE DIRECTIVE DISCUSSION Never done URINE ALBUMIN:CREATININE RATIO due on 10/31/2021 MAMMOGRAM due on 03/20/2022 Message Sent to Practice: No Navigation Signature: Floresita Espinoza Population Health Navigator February 03, 2022 3:32 PM documented in this encounter [facility] 10-27-2021 Miscellaneous Notes Patient notified, verbalized understanding. Alden Chu Ma Please call patient and let her know her knee xray shows mild arthritic changes. Arti Walker APRN.CNP documented in this encounter [facility] documented as of this encounter (statuses as of 02/03/2022) 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 Eliot Barrios Routine gynecological examination 03/19/2009 02/05/2015 Overview: [facility] [place] Impaired fasting glucose 03/19/2009 017 Overview: 114 in 2008 documented as of this encounter (statuses as of 03/01/2022) 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 Eliot Barrios Routine gynecological examination 03/19/2009 02/05/2015 Overview: [facility], [facility] [place] Impaired fasting glucose 03/19/2009 017 Overview: 114 in 2007 documented as of this encounter (statuses as of 03/17/2022) 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 Eliot Barrios Routine gynecological examination 03/19/2009 02/05/2015 Overview: [facility], [facility] [place] Impaired fasting glucose 03/19/2009 017 Overview: 114 in 2007 documented as of this encounter (statuses as of 04/12/2022) 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 Eliot Barrios Routine gynecological examination 03/19/2009 02/05/2015 Overview: [facility], [facility] [place] Impaired fasting glucose 03/19/2009 017 Overview: 114 in 2007 documented as of this encounter (statuses as of 06/04/2022) 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 Eliot Barrios Routine gynecological examination 03/19/2009 02/05/2015 Overview: [facility], [facility] Impaired fasting glucose 03/19/2009 017 Overview: 114 in 2007 documented as of this encounter (statuses as of 06/07/2022) 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 Eliot Barrios Routine gynecological examination 03/19/2009 02/05/2015 Overview: [facility], [facility] [place] Impaired fasting glucose 03/19/2009 017 Overview: 114 in 2007 documented as of this encounter (statuses as of 07/27/2022) 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 Eliot Barrios Routine gynecological examination 03/19/2009 02/05/2015 Overview: [facility], [facility] [place] Impaired fasting glucose 03/19/2009 017 Overview: 114 in 2007 documented as of this encounter (statuses as of 12/14/2022) 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 Eliot Barrios Routine gynecological examination 03/19/2009 02/05/2015 Overview: [facility], [facility] [place] Impaired fasting glucose 03/19/2009 017 Overview: 114 in 2008 documented as of this encounter (statuses as of 12/14/2022) 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 Eliot Barrios Routine gynecological examination 03/19/2009 02/05/2015 Overview: [facility], [facility] [place] Impaired fasting glucose 03/19/2009 017 Overview: 114 in 2007 documented as of this encounter (statuses as of 12/17/2022) 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 Eliot Barrios Routine gynecological examination 03/19/2009 02/05/2015 Overview: [facility], [facility] [place] Impaired fasting glucose 03/19/2009 017 Overview: 114 in 2007 documented as of this encounter (statuses as of 01/03/2023) 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 Eliot Barrios Routine gynecological examination 03/19/2009 02/05/2015 Overview: [facility], [facility] [place] Impaired fasting glucose 03/19/2009 017 Overview: 114 in 2007 documented as of this encounter (statuses as of 02/18/2023) 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 Eliot Barrois Routine gynecological examination 03/19/2009 02/05/2015 Overview: [facility], [facility] [place] Impaired fasting glucose 03/19/2009 017 Overview: 114 in 2008 documented as of this encounter (statuses as of 02/22/2023) 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 Elito Barrios Routine gynecological examination 03/19/2009 02/05/2015 Overview: [facility], [facility] [place] Impaired fasting glucose 03/19/2009 017 Overview: 114 in 2007 documented as of this encounter (statuses as of 02/24/2023) 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 Eliot Barrios Routine gynecological examination 03/19/2009 02/05/2015 Overview: [facility], [facility] [place] Impaired fasting glucose 03/19/2009 017 Overview: 114 in 2007 documented as of this encounter (statuses as of 02/25/2023) 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 Eliot Barrios Routine gynecological examination 03/19/2009 02/05/2015 Overview: [facility], [facility] [place] Impaired fasting glucose 03/19/2009 017 Overview: 114 in 2007 documented as of this encounter (statuses as of 04/22/2023) 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 Eliot Barrios Routine gynecological examination 03/19/2009 02/05/2015 Overview: [facility], [facility] [place] Impaired fasting glucose 03/19/2009 Overview: 114 in 2008 documented as of this encounter (statuses as of 04/29/2023) 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 Eliot Barrios Routine gynecological examination 03/19/2009 02/05/2015 Overview: [facility], [facility] [place] Impaired fasting glucose 03/19/2009 Overview: 114 in 2007 documented as of this encounter (statuses as of 08/12/2023) 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 Eliot Barrios Routine gynecological examination 03/19/2009 02/05/2015 Overview: [facility], [facility] [place] Impaired fasting glucose 03/19/2009 Overview: 114 in 2007 documented as of this encounter (statuses as of 08/21/2023) [facility] note* Diagnosis Essential hypertension Unspecified essential hypertension documented in this encounter [facility] note* Diagnosis Type 2 diabetes mellitus without complication, unspecified whether long term care phlebotomist insulin use (HCC) documented in this encounter [facility] note* Diagnosis URI, acute- Primary Acute upper respiratory infections of unspecified site Essential hypertension Unspecified essential hypertension Hyperlipidemia, unspecified hyperlipidemia type Type 2 diabetes mellitus without complication, unspecified whether long term care phlebotomist insulin use (HCC) documented in this encounter [facility] note* Diagnosis Diabetes (HCC) Type II or unspecified type diabetes mellitus without mention of complication, not stated as uncontrolled documented in this encounter [facility] note* Diagnosis Essential hypertension- Primary Unspecified essential hypertension Hyperlipidemia, unspecified hyperlipidemia type Type 2 diabetes mellitus without complication, unspecified whether retirement insulin use (HCC) documented in this encounter [facility] note* Diagnosis Encounter for skin care- Primary Seborrheic keratosis Actinic keratoses Actinic keratosis Seborrheic keratosis, inflamed documented in this encounter [facility] note* Diagnosis Essential hypertension Unspecified essential hypertension Type 2 diabetes mellitus without complication, unspecified whether long term care phlebotomist insulin use (HCC) documented in this encounter [facility] note* Diagnosis Encounter for skin care Seborrheic keratosis Solar lentigo Other dyschromia Multiple benign melanocytic nevi of both upper extremities, both lower extremities, and trunk Hemangioma of skin Hemangioma of skin and subcutaneous tissue documented in this encounter [facility] note* Diagnosis Hyperlipidemia, unspecified hyperlipidemia type documented in this encounter [facility] note* Diagnosis Encounter for screening mammogram for breast cancer documented in this encounter [facility] for referral (narrative)* Diagnostic Procedure Only (Routine) - Closed Specialty Diagnoses / Procedures Referred By Contharry t Referred To Contact [facility] Diagnoses Encounter for screening mammogram for breast cancer Procedures RADHA SCREENING SCREENING MAMMOGRAPHY BI 2-VIEW BREAST INC Deborah Estrada MD [address] [place] [address] [facility] [address] [place] [address] Referral ID Status Reason Start Date Expiration Date V isits Requested Visits Authorized [id number] Closed Auto-Generate d Referral 12/01/2022 12/31/2023 [facility] Diagnostic Procedure Only (Routine) - Closed Specialty Diagnoses / Procedures Referred By Contharry t Referred To Contact [facility] Diagnoses Encounter for screening mammogram for breast cancer Procedures RADHA SCREENING SCREENING MAMMOGRAPHY BI 2-VIEW BREAST INC CAD Deborah Kendall MD [address] [place] [address] [facility] [address] [place] [address] Referral ID Status Reason Start Date Expiration Date V isits Requested Visits Authorized [id number] Closed Auto-Generate d Referral 12/01/2022 12/31/[address] [facility] Advance Directives No Advanced Directives Records FoundDocuments on File Type Date Recorded Patient Child And Adolescent Therapist Expl anation Advance Directive(s) 01/04/2017 12:29 PM Advance Directive(s) 12/28/2016 3:06 PM Summary Purpose Family History No Family History Records FoundNo Family History Records FoundNo Family History Records Found Additional Source Comments Source Comments (unrecognize d section and content) In the event this informatio n is protected by the Federal Confidentiality of Alcohol and Drug Abuse Patient Records regulations: The Federal rules restrict any use of the information to criminally investigate or prosecute any alcohol or drug abuse patient.[facility] event this information is protected by the Federal Confidentiality of Alcohol and Drug Abuse Patient Records regulations: The Federal rules restrict any use of the information to criminally investigate or prosecute any alcohol or drug abuse patient.[facility] the event this information is protected by the Federal Confidentiality of Alcohol and Drug Abuse Patient Records regulations: The Federal rules restrict any use of the information to criminally investigate or prosecute any alcohol or drug abuse patient.[facility] the event this information is protected by the Federal Confidentiality of Alcohol and Drug Abuse Patient Records regulations: The Federal rules restrict any use of the information to criminally investigate or prosecute any alcohol or drug abuse patient.[facility] event this information is protected by the Federal Confidentiality of Alcohol and Drug Abuse Patient Records regulations: The Federal rules restrict any use of the information to criminally investigate or prosecute any alcohol or drug abuse patient.[facility] the event this information is protected by the Federal Confidentiality of Alcohol and Drug Abuse Patient Records regulations: The Federal rules restrict any use of the information to criminally investigate or prosecute any alcohol or drug abuse patient.[facility]In the event this information is protected by the Federal Confidentiality of Alcohol and Drug Abuse Patient Records regulations: The Federal rules restrict any use of the information to criminally investigate or prosecute any alcohol or drug abuse patient.[facility]In the event this information is protected by the Federal Confidentiality of Alcohol and Drug Abuse Patient Records regulations: The Federal rules restrict any use of the information to criminally investigate or prosecute any alcohol or drug abuse patient.[facility] HospitalIn the event this information is protected by the Federal Confidentiality of Alcohol and Drug Abuse Patient Records regulations: The Federal rules restrict any use of the information to criminally investigate or prosecute any alcohol or drug abuse patient.[facility] HospitalIn the event this information is protected by the Federal Confidentiality of Alcohol and Drug Abuse Patient Records regulations: The Federal rules restrict any use of the information to criminally investigate or prosecute any alcohol or drug abuse patient.[facility]In the event this information is protected by the Federal Confidentiality of Alcohol and Drug Abuse Patient Records regulations: The Federal rules restrict any use of the information to criminally investigate or prosecute any alcohol or drug abuse patient.[facility] HospitalIn the event this information is protected by the Federal Confidentiality of Alcohol and Drug Abuse Patient Records regulations: The Federal rules restrict any use of the information to criminally investigate or prosecute any alcohol or drug abuse patient.[facility]In the event this information is protected by the Federal Confidentiality of Alcohol and Drug Abuse Patient Records regulations: The Federal rules restrict any use of the information to criminally investigate or prosecute any alcohol or drug abuse patient.[facility]In the event this information is protected by the Federal Confidentiality of Alcohol and Drug Abuse Patient Records regulations: The Federal rules restrict any use of the information to criminally investigate or prosecute any alcohol or drug abuse patient.[facility] HospitalIn the event this information is protected by the Federal Confidentiality of Alcohol and Drug Abuse Patient Records regulations: The Federal rules restrict any use of the information to criminally investigate or prosecute any alcohol or drug abuse patient.[facility] HospitalIn the event this information is protected by the Federal Confidentiality of Alcohol and Drug Abuse Patient Records regulations: The Federal rules restrict any use of the information to criminally investigate or prosecute any alcohol or drug abuse patient.[facility] HospitalIn the event this information is protected by the Federal Confidentiality of Alcohol and Drug Abuse Patient Records regulations: The Federal rules restrict any use of the information to criminally investigate or prosecute any alcohol or drug abuse patient.[facility] HospitalIn the event this information is protected by the Federal Confidentiality of Alcohol and Drug Abuse Patient Records regulations: The Federal rules restrict any use of the information to criminally investigate or prosecute any alcohol or drug abuse patient.[facility] HospitalIn the event this information is protected by the Federal Confidentiality of Alcohol and Drug Abuse Patient Records regulations: The Federal rules restrict any use of the information to criminally investigate or prosecute any alcohol or drug abuse patient.[facility] Reason for Visit (unrecogniz ed section and content) Reason Onset Date Comments Refill Request 02/27/2022 Reason Comments Results Reason Onset Date Comments Refill Request 04/12/2022 Reason Onset Date Comments Population Health Navigation Outreach 06/04/2022 [employer] Care Gaps Reason Onset Date Comments Refill Request 05/31/2022 Reason Onset Date Comments Population Health Navigation Outreach 07/27/2022 [employer] Care Gaps Reason Comments Sore Throat Reason Onset Date Comments Refill Request 01/03/2023 Reason Comments Orders Reason Comments Refill Request Reason Comments Skin Lesion New patient (ds) Reason Onset Date Comments Refill Request 04/21/2023 Reason Onset Date Comments Population Health Navigation Outreach 04/29/2023 [employer] Care Gaps 7.5.23 Reason Comments Annual Exam KYE 04/04/2023 (KB) Reason Onset Date Comments Refill Request 08/12/2023 Care Teams (unrecognized sec tion and content) Surfacing Machine Operator Relationship Specialty Start Date End Date Deborah Kendall MD [address] [facility] [place] [address] PCP - General Family Practice 03/22/18 Surfacing Machine Operator Relationship Specialty Start Date End Date Deborah Kendall MD [address] [facility] [place] [address] PCP - General Family Practice 03/22/18 Surfacing Machine Operator Relationship Specialty Start Date End Date Deborah Kendall MD [address] [facility] [place] [address] PCP - General Family Practice 03/22/18 Surfacing Machine Operator Relationship Specialty Start Date End Date Deborah Kendall MD [address] [facility] [place] [address] PCP - General Family Medicine 03/22/18 Surfacing Machine Operator Relationship Specialty Start Date End Date Deborah Kendall MD [address] [facility] [place] [address] PCP - General Family Medicine 03/22/18 Surfacing Machine Operator Relationship Specialty Start Date End Date Deborah Kendall MD [address] [facility] [place] [address] PCP - General Family Medicine 03/22/18 Surfacing Machine Operator Relationship Specialty Start Date End Date Deborah Kendall MD [address] [facility] [place] [address] PCP - General Family Medicine 03/22/18 Surfacing Machine Operator Relationship Specialty Start Date End Date Deborah Kendall MD [address] [facility] [place] [address] PCP - General Family Medicine 03/22/18 Surfacing Machine Operator Relationship Specialty Start Date End Date Deborah Kendall MD [address] [facility] [place] [address] PCP - General Family Medicine 03/22/18 Surfacing Machine Operator Relationship Specialty Start Date End Date [facility] [address] [place] [address] PCP - General 04/04/23 Surfacing Machine Operator Relationship Specialty Start Date End Date Deborah Kendall MD [address] [place] [address] PCP - General Family Medicine 03/22/18 Surfacing Machine Operator Relationship Specialty Start Date End Date Deborah Kendall MD [address] [place] [address] PCP - General Family Medicine 03/22/18 Surfacing Machine Operator Relationship Specialty Start Date End Date [facility] [address] [place] [address] PCP - General 04/04/23 Surfacing Machine Operator Relationship Specialty Start Date End Date Deborah Kendall MD [address] [place] [address] PCP - General Family Medicine 03/22/18 Surfacing Machine Operator Relationship Specialty Start Date End Date Deborah Kendall MD [address] [place] [address] PCP - General Family Medicine 03/22/18 INFORMATION SOURCE (unrecogn ized section and content) DATE CREATED AUTHOR AUTHOR'S ORGANIZ ATION 06/09/2023 [facility] DATE CREATED AUTHOR AUTHOR'S ORGANIZ ATION 10/25/2023 [facility] FOR RECORDS PERTAINING TO PATIENTS WHO ARE OR HAVE BEEN ENROLLED IN A CHEMICAL DEPENDENCY/SUBSTANCEABUSE PROGRAM, SOME INFORMATION MAY BE OMITTED. This clinical summary was aggregated from multiple sources. Caution should be exercised in using it in the provision of clinical care. This summary normalizes information from multiple sources, and as a consequence, information in this document may materially change the coding, format and clinical context of patient data. In addition, data may be omitted in some cases. CLINICAL DECISIONS SHOULD BE BASED ON THE PRIMARY CLINICAL RECORDS. [facility]. provides no warranty or guarantee of the accuracy or completeness of information in this document.
[2023-11-09] MEDS: LORazepam 2 MG/ML Syringe 0.5 MG IV (22:21)
[2023-11-09] MEDS: Ondansetron 4 MG/2 ML Vial IV (22:21)
[2023-11-09 23:00] VITALS: BP 116/71; PULSE 63; RESP 12
[2023-11-09 23:40] VITALS: BP 158/71; PULSE 83; RESP 16; O2SAT 98
--- NOTE | 2023-11-09 23:41 | PCM.HP.STD ---
HPI - General General Date of Admission: 11/09/23 Date of Service: 11/09/23 Chief Complaint: Dizziness, room spinning. HPI Narrative The patient is a 73 y/o F w/ PMHx: Obesity, Diabetes mellitus type II, GERD, HTN, HLD who presents to the [facility] ED on 11/09/23 with history of awakening morning on day prior to presentation with room spinning sensation with nausea and emesis which slowly has been improved however it has been ongoing for the day with no other concerning neurological changes including altered speech or focal weakness reporting that the dizziness and spinning sensation does worsen with specific head movements and given not completely resolved prompted eventual ED evaluation. In the ED NIH stroke scale was 0. In the ED with evaluation with rotation of the head to the left to right patient's symptoms significantly worsen but much improved from what they were earlier in the morning. Workup in the ED included T97.9, heart rate 76, BP 139/87, respiratory rate 18, 99% on room air with most recent repeat vital signs heart rate 63, BP 116/71, respiratory rate 12, CBC with WBC 9.8, hemoglobin 14.8, platelet 232 with left shift, unremarkable coags, BMP with chloride 108, BUN/creatinine 19/0.88, glucose 202 otherwise not marked appearing, chest x-ray with no acute cardiopulmonary findings, CTA head and neck/CT head with no large vessel occlusion or acute abnormality with a calcified plaque in both cavernous carotids but less than 50% stenosis bilaterally, EKG was sinus rhythm with no acute evidence of ischemia. In the ED patient ministered maintenance IV fluids, Zofran 4 mg IV x 1 as well as Ativan 0.5 mg IV x 1. [facility] Medical History Diabetes mellitus, type 2 GERD (gastroesophageal reflux disease) HLD (hyperlipidemia) HTN (hypertension) Obesity Home Medications atenolol 50 mg tablet 50 mg PO DAILY BLOOD PRESSURE 11/30/18 [History Last Taken Unknown] hydrochlorothiazide 25 mg tablet 25 mg PO DAILY BLOOD PRESSURE 11/30/18 [History Last Taken Unknown] lisinopril 10 mg tablet 10 mg PO DAILY BLOOD PRESSURE 11/30/18 [History Last Taken Unknown] atorvastatin 20 mg tablet 20 mg PO DAILY hld 11/09/23 [History Last Taken Unknown] cholecalciferol (vitamin D3) 10 mcg (400 unit) capsule (Vitamin D3) 10 mcg PO DAILY vitamin 11/09/23 [History Last Taken Unknown] glimepiride 4 mg tablet 4 mg PO DAILY dm 11/09/23 [History Last Taken Unknown] omeprazole 20 mg capsule,delayed release 20 mg PO DAILY PRN GERD 11/09/23 [History Last Taken Unknown] Allergy/AdvReac Type Severity Reaction Status Date / Time doxycycline Allergy Rash Verified 11/09/23 20:04 metformin Allergy Pain in Verified 11/09/23 20:04 joints Penicillins [PCN] Allergy Rash Verified 11/09/23 20:04 Family History (Updated 11/10/23 @ 00:[address] Lilo Akers MD) Father Heart disease Hypertension CAD (coronary artery disease) Mother Diabetes Family History no significant family his Surgical History H/O: hysterectomy Hx of cholecystectomy Social History (Updated 11/10/23 @ 00:[address] Lilo Akers MD) household members: none and other details: passed ~ 1 year prior. Smoking Status: Never smoker alcohol intake: never substance use type: does not use ROS ROS Narrative Admission Review of Systems: CONSTITUTIONAL: No weight loss, fever, chills, + weakness or fatigue. HEENT: + Lightheadedness/dizziness with vertiginous sensation, room is spinning. Eyes: No visual loss, blurred vision, double vision or yellow sclerae. Ears, Nose, Throat: No hearing loss, sneezing, congestion, runny nose or sore throat. SKIN: No rash or itching, lesions, wounds. CARDIOVASCULAR: + Lightheadedness/dizziness with vertiginous sensation, room is spinning.. No chest pain, chest pressure or chest discomfort, palpitations, edema, orthopnea, syncopal events. RESPIRATORY: No shortness of breath, cough or sputum, wheezing, hemoptysis. GASTROINTESTINAL: + anorexia, nausea, vomiting. No diarrhea, abdominal pain, melena, BRBPR. GENITOURINARY: No dysuria, frequency, urgency or retention. NEUROLOGICAL: + Lightheadedness/dizziness with vertiginous sensation, room is spinning. No syncope, paralysis, ataxia, numbness or tingling in the extremities, focal weakness, change in bowel or bladder control, seizure. MUSCULOSKELETAL: No muscle, back pain, joint pain or stiffness. HEMATOLOGIC: No anemia, bleeding or bruising. LYMPHATICS: No enlarged nodes. No history of splenectomy. PSYCHIATRIC: No history of depression or anxiety. ENDOCRINOLOGIC: No reports of sweating, cold or heat intolerance. No polyuria or polydipsia. ALLERGIES: No history of asthma, hives, eczema or rhinitis. Vital Signs Vital Signs Vital Signs: 11/09/23 20:01 11/09/23 20:04 11/09/23 21:08 Temperature 97.9 F Temperature Source Temporal Pulse Rate 76 Respiratory Rate 18 Respiratory Effort Normal Respiratory Pattern Normal Blood Pressure 139/87 H Blood Pressure Mean 104 Pulse Ox 99 Oxygen Delivery Method Room Air Room Air 11/09/23 23:00 11/09/23 23:40 Temperature Temperature Source Pulse Rate 63 83 Respiratory Rate 12 16 Respiratory Effort Respiratory Pattern Blood Pressure 116/71 158/71 H Blood Pressure Mean 86 100 Pulse Ox 98 Oxygen Delivery Method Weight Weight: 185 lb 6 oz Body Mass Index (BMI) 31.8 Physical Exam Narrative Physical Examination: General: Awake, alert, oriented x 3 and cooperative, seated upright in the ED bed, fatigued, notes vertiginous symptoms have improved except when she attempted to get up and move but she is able to move her head with greater ease now. Skin: Normal color, normal turgor, no icterus, no cyanosis. HEENT: AT/NC, EOMI, PERRLA, moderately dry MM, no carotid bruits or JVD noted. Lungs: CTA bilaterally, moderate effort, mild decrease BL bases, no rales, ronchi or wheezing. Heart: Regular rate and rhythm; no gallop, rub audible. Abdomen: Soft, obese, NTTP, ND, mildly hyperactive BS, no HSM. Extremities: No cyanosis, clubbing, or edema. Neurological: Patient awake, alert, oriented as noted, cognitive function intact; pupils equally reactive to light and accommodation, cranial nerves II-XII grossly normal, moving all 4 extremities, no focal deficits, strength improved, moderately globally decreased, currently unable to reproduce any vertiginous symptoms and she notes she is able to move her head with greater ease and sit up, no evidence of any nystagmus. Psychiatric: Affect appears mildly flat, fatigued, no acute evidence of depressive or anxiety feelings. Results Lab / Micro Data 11/09/23 20:10 11/09/23 20:10 Labs: Laboratory Results - last 24 hr 11/09/23 20:10: WBC 9.8, RBC 4.77, Hgb 14.8, Hct 43.9, MCV 92.0, MCH 31.0, MCHC 33.7, RDW Std Deviation 40.7, RDW Coeff of Mignon 12.0, Plt Count 232, MPV 10.4, Immature Gran % (Auto) 0.400, Neut % (Auto) 79.6 H, Lymph % (Auto) 15.0 L, Scurry % (Auto) 4.6, Eos % (Auto) 0.1, Baso % (Auto) 0.3, Absolute Neuts (auto) 7.8 H, Absolute Lymphs (auto) 1.47, Nucleated RBC % 0, PT 13.8, INR 1.1, APTT 28.1, Sodium 137, Potassium 3.6, Chloride 108 H, Carbon Dioxide 26.0, Anion Gap 3 L, BUN 19 H, Creatinine 0.88, Estim Creat Clear Calc 58.84, Est GFR (MDRD) Af Amer 81, Est GFR (MDRD) Non-Af 67, BUN/Creatinine Ratio 21.6 H, Glucose 202 H, Calcium 10.0 Rhythm Strip Rhythm Strip: Sinus Rhythm Rate: 63 Ectopy: None Imagaing Radiology Impression Chest X-Ray 11/09/23 20:40 IMPRESSION: Normal x-ray examination of the chest. Electronically Signed: Rashawn Mondragon MD at 21:50 EST , Head/Neck CTA 11/09/23 21:18 IMPRESSION: No large vessel occlusion or acute abnormality. Calcified plaque in both cavernous carotid arteries but less than 50% stenosis bilaterally. Otherwise unremarkable for age. Electronically Signed: Rashawn Mondragon MD at 22:04 EST , Assessment & Plan Assessment/Plan (1) Vertigo: PLAN: Plan The patient is a 73 y/o F w/ PMHx: Obesity, Diabetes mellitus type II, GERD, HTN, HLD who presents to the [facility] ED on 11/09/23 with history of awakening morning on day prior to presentation with room spinning sensation with nausea and emesis which slowly has been improved however it has been ongoing for the day with no other concerning neurological changes including altered speech or focal weakness reporting that the dizziness and spinning sensation does worsen with specific head movements and given not completely resolved prompted eventual ED evaluation. #1. Vertigo, suspected benign positional vertigo with similar history previously: EKG in ED w/ sinus rhythm without evidence of acute ischemia, CXR w/ no acute cardiopulmonary findings, CTA head and neck/CT head with no large vessel occlusion with less than 50% stenosis bilaterally, trop normal, symptoms improving and reproducible with head positional changes in the ED with some debility with ambulatory attempts. Will admit to [facility], will maintain on fall precautions, will continue treatment with scheduled meclizine, PRN zofran, IVFs. PT/OT consultation to ascertain stability and discharge needs. If worsens or not improving low threshold to obtain MRI brain to be cautious. #2. Diabetes mellitus type II: Hold oral home regimen, ADA diet, accu checks w/ ISS. #3. Hypertension: Continue home regimen including lisinopril, atenolol, hydrochlorothiazide, PRN hydralazine. #4. Hyperlipidemia: We will continue patient on statin therapy. #5. GERD: We will continue patient on PPI. #6. Incidental BL carotid stenosis: CTA as noted with BL < 50 % stenosis, will maintain on asa, statin, HTN regimen as noted, encourage continued outpatient follow-up and assessments. #7. DVT prophylaxis: Lovenox. #8. CODE status: Patient JOSE is her daughter Maite and living will is currently in place. Discussed CODE status at length including difference between FULL code, DNR-CCA and DNR-CC status. Following discussions about the differences in these status, requested Full Code status. Advanced Care Planning Face to Face Time: 16 minutes. Charges/Coding Visit Charges Inpatient E&M: 20816 Init Hosp L2 Procedures Hospitalists Procedures: 25037 Advncd Care Plan 30 Min
--- OUTSIDE RECORDS SUMMARY | 2023-11-09 23:49 | XMS RPT_ITS | CCD ---
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 Physicians Primary Care Provider Unav Deborah Lehman MD Primary Care Provider [phone] DEBORAH KENDALL Primary Care Unavailable OFELIA GIANG Referring Unavailable OFELIA GIANG Attending Unavailable [facility] Primary Care Unavailable ROSARIO, LIDIA Attending Unavailable [facility], [facility] Primary Care Unavailable LIDIA PONCE Attending Unavailable [...] Translations: [DOXYCYCLINE HYCLATE] Drug Allergy 03-24-2006 Intolerance [facility] Work Phone: (20 sources) metFORMIN; Translations: [METFORMIN] Drug Allergy 10-15-2019 Other: See Comments, Other [facility] (20 sources) Penicillin G; Translations: [PENICILLIN G] Drug Allergy 08-03-2005 [facility] Work Phone: (2 sources) Doxycycline Drug Allergy 03-24-2006 Other [facility] Medications Completed/Discontinued Medications Medication Drug Class(es) [...] 12-13-2022 15:39-0500 Body temperature 100 [degF] Deborah Kendall MD Work Phone: [facility] 12-13-2022 15:39-0500 Body weight 82.56 kg Deborah Kendall MD Work Phone: [facility] 12-13-2022 15:39-0500 Diastolic blood pressure 86 mm[Hg] Deborah Kendall MD Work Phone: [facility] 12-13-2022 15:39-0500 Heart rate 74 /min Deborah Kendall MD Work Phone: [facility] 12-13-2022 15:39-0500 Respiratory rate 18 /min Deborah Kendall MD Work Phone: [facility] 12-13-2022 15:39-0500 Systolic blood pressure 134 mm[Hg] Deborah Kendall MD Work Phone: [facility] Encounters Encounter Date Encounter Type Care Provider Facility Start: 10-19-2023 End: 10-19-2023 ambulatory DEBORAH KENDALL Facility:[facility] Start: 10-18-2023 End: 10-18-2023 [facility] Start: 08-12-2023 Refill Deborah arguelles MD Work [...] Activity Detail Author Start: 05-19-2025 Colonoscopy COLONOSCOPY [facility] Start: 05-19-2025 COLORECTAL CANCER SCREENING COLORECTAL CANCER SCREENING [facility] Start: 06-05-2024 End: 06-05-2024 Patient encounter procedure 06/05/2024 2:20 PM EDT Office Visit [facility] [address] [place] [address] Lidia Ponce PA-C [address] [place], [place] [id number] [facility] Start: 03-31-2024 Hepatitis C antibody, confirmatory test DILATED RETINAL EXAM [facility] Start: 03-15-2024 BP CONTROLLED (<130/80) BP CONTROLLED (<130/80) [facility] in Start: 02-23-2024 Hepatitis B screening URINE ALBUMIN:CREATININE RATIO [facility] Start: 02-23-2024 Hepatitis B surface antibody level LDL CHOLESTEROL [facility] Start: 12-14-2023 Mammography [facility] Start: 12-13-2023 ANNUAL PCP TEAM CHRONIC DISEASE VISIT ANNUAL PCP TEAM CHRONIC DISEASE VISIT [facility] Start: 08-25-2023 Hemoglobin A1c/Hemoglobin.total in Blood HBA1C [facility] Start: 06-17-2023 Covid-19 Vaccine ( season) Covid-19 Vaccine () [facility] Start: 06-17-2023 Influenza vaccination [facility] Start: 06-03-2023 End: 06-03-2023 Patient encounter procedure 06/03/2023 3:40 PM EDT Office Visit [facility] [address] [place] [id number] Lidia Ponce PA-C [address] [place] [address] [facility] Start: 02-21-2023 End: 04-23-2023 ALBUMIN/CREAT RATIO RND UR ALBUMIN/CREAT RATIO RND UR Lab Routine Type 2 diabetes mellitus without complication, unspecified whether retirement insulin use (HCC) Expected: 02/21/2023 (Approximate), Expires: 04/23/[address] [facility] Work Phone: Immunizations Immunization Date Immunization Notes Care Provider Fa cilidavon 06-27-2018 influenza virus vaccine, unspecified formulation Deborah Kendall MD Work Phone: [facility] 11-17-2003 diphtheria and tetan us toxoids, adsorbed for pediatric use Floresita Espinoza [facility] Work Phone: Payers Date Payer Category Payer Medicare AETNA MEDICARE A ETNA MEDICARE PPO [id number] 2021-Present [phone] [address] [place] [address] O [id number] 2021 Medicare [id number] 2021 Medicare [id number] Social History Date Type Detail Facility Start: 08-13-2011 End: 12-13-2022 Tobacco smoking status NHIS Never smoked tobacco [facility] Start: 12-28-2021 End: 12-13-2022 Alcohol intake Current drinker of alcohol (finding) [facility] Start: 02-18-2017 History SDOH Alcohol Comment OCCASIONAL < 1/week [facility] Start: 1950 Sex Assigned At Not on file [facility] Start: 12-18-2021 End: 06-03-2023 Exposure to SARS-CoV-2 (event) Not sure [facility] Start: 08-13-2011 End: 12-13-2022 Tobacco use and exposure Smokeless tobacco non-user [facility] Work Phone: Tobacco smoking stat [facility] Tobacco smoking consumption unknown [facility] Start: 09-21-2020 End: 04-25-2023 Gender identity Not on file [facility] Start: 09-21-2020 End: 04-25-2023 History of Social function [facility] Adult Depression Screening Assessment 0 [facility] Clinical Notes 10-13-2016 to 10-19-2023 Telephone Encounter - Deborah Kendall MD - 08/12/2023 11:51 AM EDTTelephone Encounter - Tianna Dela Cruz - 08/12/2023 9:00 AM EDTLidia Ponce PA-C - 06/03/2023 3:40 PM EDT Note Date & Type Note Facility 10-19-2023 Note HNO ID: [id number] Author: Viri Cody RT(R) Service: ? Author Type: State Highway Police Officer Type: Progress Notes Filed: 10/19/2023 3:57 PM [...] RT Jenny(R) October 19, 2023 3:56 PM [facility] 08-12-2023 Miscellaneous Notes OK to refill [...] Tianna Munoz Pss documented in this encounter [facility] 06-03-2023 History of Present illness Narrative DATE OF SERVICE: 06/03/2023 PATIENT NAME: Pily Hendrix : 1950 AGE: 72 y.o. CLINIC NUMBER: [id number] Visit type: Established patient Chief Complaint Patient [...] Social History: Occupation: retired . Born/raised in [place]. Outdoor sports: Yes. 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 Try to limit sun exposure to upscale security officer or late evening hours. Patient advised to [...] for this encounter. documented in this encounter [facility] 05-04-2023 Note HNO ID: [id number] Author: Jessica Orozco MA Service: ? Author Type: Glass Rolling Machine Operator Type: Progress Notes Filed: 05/04/2023 2:44 PM [...] Orozco MA May 04, 2023 2:35 PM [facility] 04-29-2023 Note Patient Outreach (JAE FRYAV) PILY HENDRIX ([id number]) 1950 F NFR Date Time Provider Department [...] [I10] 08/22/2005 Rout[facility] at [facility]03/19/2009 02/05/2015 Class: Chronic Routine gynecological examination [Z01.419] [...] [D18.01] 02/28/2014 12/21/2016 (more content not included)... [facility] 04-29-2023 Note HNO ID: [id number] Author: Jessica Orozco MA Service: ? Author Type: Glass Rolling Machine Operator Type: Progress Notes Filed: 04/29/2023 10:54 AM [...] Orozco MA April 29, 2023 9:15 AM [facility] 04-29-2023 History of Present illness Narrative [...] 2023 9:15 AM documented in this encounter [facility] 04-25-2023 Note HNO ID: [id number] Author: Ofelia Giang MD Service: ? Author Type: Physician Type: Progress Notes Filed: 04/25/2023 11:51 AM Note Text: Gynecologic Oncology [facility] Follow up Re: Pily Abreu Simeon [facility]#: [id number] Date of Service: 04/25/[address] Euceda: [...] Bimanual and rectovaginal exams reveal no masses. Emergency Room Clinician offered: Patient accepts, visit chaperoned by Alexa [...] The previous no (more content not included)... [facility] 04-21-2023 Miscellaneous Notes OK to refill as [...] Tianna Munoz Pss documented in this encounter [facility] 04-04-2023 History of Present illness Narrative DATE OF SERVICE: 04/04/2023 PATIENT NAME: Pily Hendrix : 1950 AGE: 72 y.o. CLINIC NUMBER: [id number] Visit type: New Chief Complaint Patient presents with Skin Lesion New patient (ds) Subjective HISTORY OF PRESENT ILLNESS: This is a 72 y.o. female who presents for evaluation of mole Patient has seen a thermal spray operator in the past. In [place]. Had several [...] No Social History:Occupation: retired . Born/raised in [place]. Outdoor sports: yes . 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 Author Type: Nurse Practitioner Type: [...] and dry. Neurological: (more content not included)... [facility] 02-25-2023 Miscellaneous Notes Patient returned call [...] Joel Neumann APRN.HARPER documented in this encounter [facility] 02-24-2023 Miscellaneous Notes OK to refill [...] Last refill: 02/2022 documented in this encounter [facility] 02-21-2023 Miscellaneous Notes Patient notified of results. Macarena Yung MA Labs ordered Deborah Kendall MD Patient came in to get lab work done. She only had A1C lab placed, she said that she wanted all the labs done: potassium, cholesterol, iron, all of the labs. Please advise and call patient regarding orders. documented in this encounter [facility] 02-15-2023 Note Patient Outreach (IN TMMN) PILY HENDRIX ([id number]) 1950 F NFR Date Time Provider Department [...] Assessed Visit Diagnosis:Diabetes (HCC) [E11.9] Order(s):HGB A1C [[id number]] Order #: [id number] FUTURE Prescriptions as of 02/18/2023 - omeprazole [...] [I10] 08/22/2005 Routine general medical examination at [facility]03/19/2009 02/05/2015 Class: Chronic Routine gynecological examination [Z01.419] [...] Encounter Status:Closed by SANDRA LUTHER on 02/18/23 [facility] 01-03-2023 Miscellaneous Notes The following approved medication requests have been transmitted electronically. Requested Prescriptions Pending Prescriptions Disp Refills omeprazole (PRILOSEC) 20 mg capsule 90 capsule 3 Sig: TAKE 1 CAPSULE DAILY 30 MINUTES BEFORE BREAKFAST Joel Thien, QUARTZ CUTTER.BIOSTATISTICS MANAGER Patient has been identified by name and [...] Nimo Vora LPN documented in this encounter [facility] 12-15-2022 Miscellaneous Notes December 16, 2022 PID: [id number] Pily Hendrix [id number] [id number] Dear Ms. Hendrix, We are pleased to [...] report will be kept on file at [facility] as part of your permanent medical record and are available for your continuing care. Thank you for allowing us to help in meeting your health care needs. Sincerely, Dr. Watson Interpreting Radiologist [facility] (Normal over 40) documented in this encounter [facility] 12-14-2022 Note HNO ID: [id number] Author: RT David(R) Service: ? Author Type: [...] RT David(R) December 14, 2022 8:28 AM [facility] 12-14-2022 Miscellaneous Notes Patient notified of [...] Deborah Kendall MD documented in this encounter [facility] 12-14-2022 History of Present illness Narrative [...] 2022 8:28 AM documented in this encounter [facility] 12-13-2022 Note HNO ID: [id number] Author: Deborah Kendall MD Service: ? Author [...] DENSITY Completed HEP (more content not included)... [facility] 12-13-2022 History of Present illness Narrative [...] 2 diabetes mellitus without complication, unspecified whether petroleum terminal plant operator insulin use (HCC) - ICD9: 250.00, ICD10: E11.9 - LIPID PANEL BASIC - HGB A1C - ALBUMIN/CREAT RATIO RND UR Notify of lab results Follow up as needed Medical Decision Making: Problems: Low: Acute, uncomplicated illness or injury Data: Unique test(s) ordered: 3+ Risk: Moderate: Drug management Medical Decision Making Level: 4 - Moderate Deborah Kendall MD documented in this encounter [facility] 12-01-2022 Note Patient Outreach (IN TMMN) PILY HENDRIX ([id number]) 1950 F NFR Date Time Provider Department [...] for screening mammogram for breast cancer [Z12.31] Order(s):[facility] SCREENING [[id number]] Order #: [id number] FUTURE Prescriptions as of 12/06/2022 - hydroCHLOROthiazide [...] [I10] 08/22/2005 Routine [facility] examination at [facility]03/19/2009 02/05/2015 Class: Chronic Routine gynecological examination [Z01.419] [...] Encounter Status:Closed by SANDRA LUTHER on 12/06/22 [facility] 07-27-2022 History of Present illness Narrative [...] 2022 3:38 PM documented in this encounter [facility] 06-07-2022 Miscellaneous Notes Pt notified. OK to refill as ordered Deborah Kendall MD Patient called to check on the status of this refill request. She is completely out of medication now. She still wants the mail order request sent, but will also need a short term refill to [facility] in [place]. She would like a call at [phone] when sent. Patient has been identified by name and date of : Yes She is completely out of medication now. She still wants the mail order request sent, but will also need a short term refill to [facility] in [place]. She would like a call at [phone] when sent. Requested Prescriptions Pending Prescriptions Disp Refills glimepiride (AMARYL) 4 mg tablet 90 tablet 3 Sig: Take 1 tablet by mouth daily with breakfast. Patient has only a few left. RX INSTRUCTIONS: Patient aware RX will be sent to pharmacy. No need to notify patient. Marry Nina documented in this encounter [facility] 06-04-2022 History of Present illness Narrative [...] 2022 7:56 AM documented in this encounter [facility] 04-12-2022 Miscellaneous Notes The following approved [...] complete. Marry Nina documented in this encounter [facility] 03-01-2022 Miscellaneous Notes The following approved medication requests have been transmitted electronically. Pending Prescriptions Disp Refills ATENOLOL 50 MG TABLET 90 tablet 3 Sig: Take 1 tablet by mouth once daily. CLAIRE: No Joel Neumann APRN.BIOSTATISTICS MANAGER Patient phones requesting refills as follows: Pending Prescriptions Disp Refills ATENOLOL 50 MG TABLET 90 tablet 3 Sig: Take 1 tablet by mouth once daily. CLAIRE: No KYE-11/26/21 Labs-11/25/21 NOV-05/27/22 med filled 06/16/20 Please review and advise. Nalini Ashton LPN Patient has been identified by name and date of : Yes Last office visit in this department: 11/26/2021 RX INSTRUCTIONS: Patient aware RX will be sent to pharmacy. No need to notify patient. Patient phones requesting refills as follows: No medications selected for refill. Please review and advise. Carissa Mata Pss documented in this encounter [facility] 02-03-2022 History of Present illness Narrative [...] 2022 3:32 PM documented in this encounter [facility] 10-27-2021 Miscellaneous Notes Patient notified, verbalized understanding. Alden Chu Ma Please call patient and let her know her knee xray shows mild arthritic changes. Arti Walker APRN.CNP documented in this encounter [facility] documented as of this encounter (statuses as of 02/03/2022) [facility]12-28-2016 History of Past illness Narrative* Problem [...] Barrios Routine gynecological examination 03/19/2009 02/05/2015 Overview: [facility], [facility] [place] Impaired fasting glucose 03/19/2009 017 Overview: 114 in 2008 documented as of this encounter (statuses as of 03/01/2022) [facility] History of Past illness Narrative* Problem [...] Barrios Routine gynecological examination 03/19/2009 02/05/2015 Overview: [facility], [facility] [place] Impaired fasting glucose 03/19/2009 017 Overview: 114 in 2007 documented as of this encounter (statuses as of 03/17/2022) [facility] History of Past illness Narrative* Problem [...] Barrios Routine gynecological examination 03/19/2009 02/05/2015 Overview: [facility], [facility] [place] Impaired fasting glucose 03/19/2009 017 Overview: 114 in 2007 documented as of this encounter (statuses as of 04/12/2022) [facility] History of Past illness Narrative* Problem [...] Barrios Routine gynecological examination 03/19/2009 02/05/2015 Overview: [facility], [facility] [place] Impaired fasting glucose 03/19/2009 017 Overview: 114 in 2007 documented as of this encounter (statuses as of 06/04/2022) [facility] History of Past illness Narrative* Problem [...] Barrios Routine gynecological examination 03/19/2009 02/05/2015 Overview: [facility], [facility] Impaired fasting glucose 03/19/2009 017 Overview: 114 in 2007 documented as of this encounter (statuses as of 06/07/2022) [facility] History of Past illness Narrative* Problem [...] Barrios Routine gynecological examination 03/19/2009 02/05/2015 Overview: [facility], [facility] [place] Impaired fasting glucose 03/19/2009 017 Overview: 114 in 2007 documented as of this encounter (statuses as of 07/27/2022) [facility] History of Past illness Narrative* Problem [...] Barrios Routine gynecological examination 03/19/2009 02/05/2015 Overview: [facility], [facility] [place] Impaired fasting glucose 03/19/2009 017 Overview: 114 in 2007 documented as of this encounter (statuses as of 12/14/2022) [facility] History of Past illness Narrative* Problem [...] Barrios Routine gynecological examination 03/19/2009 02/05/2015 Overview: [facility], [facility] [place] Impaired fasting glucose 03/19/2009 017 Overview: 114 in 2008 documented as of this encounter (statuses as of 12/14/2022) [facility] History of Past illness Narrative* Problem [...] Barrios Routine gynecological examination 03/19/2009 02/05/2015 Overview: [facility], [facility] [place] Impaired fasting glucose 03/19/2009 017 Overview: 114 in 2007 documented as of this encounter (statuses as of 12/17/2022) [facility] History of Past illness Narrative* Problem [...] Barrios Routine gynecological examination 03/19/2009 02/05/2015 Overview: [facility], [facility] [place] Impaired fasting glucose 03/19/2009 017 Overview: 114 in 2007 documented as of this encounter (statuses as of 01/03/2023) [facility] History of Past illness Narrative* Problem [...] Barrios Routine gynecological examination 03/19/2009 02/05/2015 Overview: [facility], [facility] [place] Impaired fasting glucose 03/19/2009 017 Overview: 114 in 2007 documented as of this encounter (statuses as of 02/18/2023) [facility] History of Past illness Narrative* Problem [...] Barrios Routine gynecological examination 03/19/2009 02/05/2015 Overview: [facility], [facility] [place] Impaired fasting glucose 03/19/2009 017 Overview: 114 in 2008 documented as of this encounter (statuses as of 02/22/2023) [facility] History of Past illness Narrative* Problem [...] Barrios Routine gynecological examination 03/19/2009 02/05/2015 Overview: [facility], [facility] [place] Impaired fasting glucose 03/19/2009 017 Overview: 114 in 2007 documented as of this encounter (statuses as of 02/24/2023) [facility] History of Past illness Narrative* Problem [...] Barrios Routine gynecological examination 03/19/2009 02/05/2015 Overview: [facility], [facility] [place] Impaired fasting glucose 03/19/2009 017 Overview: 114 in 2007 documented as of this encounter (statuses as of 02/25/2023) [facility] History of Past illness Narrative* Problem [...] Barrios Routine gynecological examination 03/19/2009 02/05/2015 Overview: [facility], [facility] [place] Impaired fasting glucose 03/19/2009 017 Overview: 114 in 2007 documented as of this encounter (statuses as of 04/22/2023) [facility] History of Past illness Narrative* Problem [...] Barrios Routine gynecological examination 03/19/2009 02/05/2015 Overview: [facility], [facility] [place] Impaired fasting glucose 03/19/2009 Overview: 114 in 2008 documented as of this encounter (statuses as of 04/29/2023) [facility] History of Past illness Narrative* Problem [...] Barrios Routine gynecological examination 03/19/2009 02/05/2015 Overview: [facility], [facility] [place] Impaired fasting glucose 03/19/2009 Overview: 114 in 2007 documented as of this encounter (statuses as of 08/12/2023) [facility] History of Past illness Narrative* Problem [...] Routine gynecological examination 03/19/2009 02/05/2015 Overview: [facility], [facility] [place] Impaired fasting glucose 03/19/2009 Overview: 114 in 2007 documented as of this encounter (statuses as of 08/21/2023) [facility] note* Diagnosis Essential hypertension Unspecified essential hypertension documented in this encounter [facility] note* Diagnosis Type 2 diabetes mellitus without complication, unspecified whether petroleum terminal plant operator insulin use (HCC) documented in this encounter [facility] note* Diagnosis URI, acute- Primary Acute upper respiratory infections of unspecified site Essential hypertension Unspecified essential hypertension Hyperlipidemia, unspecified hyperlipidemia type Type 2 diabetes mellitus without complication, unspecified whether petroleum terminal plant operator insulin use (HCC) documented in this encounter [facility] note* Diagnosis Diabetes (HCC) Type II or unspecified type diabetes mellitus without mention of complication, not stated as uncontrolled documented in this encounter [facility] note* Diagnosis Essential hypertension- Primary Unspecified essential hypertension Hyperlipidemia, unspecified hyperlipidemia type Type 2 diabetes mellitus without complication, unspecified whether retirement insulin use (HCC) documented in this encounter [facility] note* Diagnosis Encounter for skin care- Primary Seborrheic keratosis Actinic keratoses Actinic keratosis Seborrheic keratosis, inflamed documented in this encounter [facility] note* Diagnosis Essential hypertension Unspecified essential hypertension Type 2 diabetes mellitus without complication, unspecified whether petroleum terminal plant operator insulin use (HCC) documented in this encounter [facility] note* Diagnosis Encounter for skin care Seborrheic keratosis Solar lentigo Other dyschromia Multiple benign melanocytic nevi of both upper extremities, both lower extremities, and trunk Hemangioma of skin Hemangioma of skin and subcutaneous tissue documented in this encounter [facility] note* Diagnosis Hyperlipidemia, unspecified hyperlipidemia type documented in this encounter [facility] note* Diagnosis Encounter for screening mammogram for breast cancer documented in this encounter [facility] for referral (narrative)* Diagnostic Procedure Only (Routine) - Closed Specialty Diagnoses / Procedures Referred By Contharry t Referred To Contact [facility] Diagnoses Encounter for screening mammogram for breast cancer Procedures RADHA SCREENING SCREENING MAMMOGRAPHY BI 2-VIEW BREAST INC Deborah Estrada MD [address] [place] [address] [facility] [address] [place] [address] Referral ID Status Reason Start Date Expiration Date V isits Requested Visits Authorized [id number] Closed Auto-Generate d Referral 12/01/2022 12/31/2023 [facility] Diagnostic Procedure Only (Routine) - Closed Specialty Diagnoses / Procedures Referred By Contharry t Referred To Contact [facility] Diagnoses Encounter for screening mammogram for breast cancer Procedures RADHA SCREENING SCREENING MAMMOGRAPHY BI 2-VIEW BREAST INC CAD Deborah Kendall MD [address] [place] [address] [facility] [address] [place] [address] Referral ID Status Reason Start Date Expiration Date V isits Requested Visits Authorized [id number] Closed Auto-Generate d Referral 12/01/2022 12/31/2023 1 1 [facility] Advance Directives No Advanced Directives Records FoundDocuments on File Type Date Recorded Patient Research Clerk Expl anation Advance Directive(s) 01/04/2017 12:29 PM [...] or prosecute any alcohol or drug abuse patient.[facility] the event this information is protected by the Federal Confidentiality of Alcohol and Drug Abuse Patient Records regulations: The Federal rules restrict any use of the information to criminally investigate or prosecute any alcohol or drug abuse patient.[facility] the event this information is protected by the Federal Confidentiality of Alcohol and Drug Abuse Patient Records regulations: The Federal rules restrict any use of the information to criminally investigate or prosecute any alcohol or drug abuse patient.[facility] the event this information is protected by the Federal Confidentiality of Alcohol and Drug Abuse Patient Records regulations: The Federal rules restrict any use of the information to criminally investigate or prosecute any alcohol or drug abuse patient.[facility] the event this information is protected by the Federal Confidentiality of Alcohol and Drug Abuse Patient Records regulations: The Federal rules restrict any use of the information to criminally investigate or prosecute any alcohol or drug abuse patient.[facility] the event this information is protected by the Federal Confidentiality of Alcohol and Drug Abuse Patient Records regulations: The Federal rules restrict any use of the information to criminally investigate or prosecute any alcohol or drug abuse patient.[facility] the event this information is protected by the Federal Confidentiality of Alcohol and Drug Abuse Patient Records regulations: The Federal rules restrict any use of the information to criminally investigate or prosecute any alcohol or drug abuse patient.[facility] the event this information is protected by the Federal Confidentiality of Alcohol and Drug Abuse Patient Records regulations: The Federal rules restrict any use of the information to criminally investigate or prosecute any alcohol or drug abuse patient.[facility] the event this information is protected by the Federal Confidentiality of Alcohol and Drug Abuse Patient Records regulations: The Federal rules restrict any use of the information to criminally investigate or prosecute any alcohol or drug abuse patient.[facility] the event this information is protected by the Federal Confidentiality of Alcohol and Drug Abuse Patient Records regulations: The Federal rules restrict any use of the information to criminally investigate or prosecute any alcohol or drug abuse patient.[facility]In the event this information is protected by the Federal Confidentiality of Alcohol and Drug Abuse Patient Records regulations: The Federal rules restrict any use of the information to criminally investigate or prosecute any alcohol or drug abuse patient.[facility] the event this information is protected by the Federal Confidentiality of Alcohol and Drug Abuse Patient Records regulations: The Federal rules restrict any use of the information to criminally investigate or prosecute any alcohol or drug abuse patient.[facility] the event this information is protected by the Federal Confidentiality of Alcohol and Drug Abuse Patient Records regulations: The Federal rules restrict any use of the information to criminally investigate or prosecute any alcohol or drug abuse patient.[facility] the event this information is protected by the Federal Confidentiality of Alcohol and Drug Abuse Patient Records regulations: The Federal rules restrict any use of the information to criminally investigate or prosecute any alcohol or drug abuse patient.[facility] the event this information is protected by the Federal Confidentiality of Alcohol and Drug Abuse Patient Records regulations: The Federal rules restrict any use of the information to criminally investigate or prosecute any alcohol or drug abuse patient.[facility] HospitalIn the event this information is protected by the Federal Confidentiality of Alcohol and Drug Abuse Patient Records regulations: The Federal rules restrict any use of the information to criminally investigate or prosecute any alcohol or drug abuse patient.[facility] HospitalIn the event this information is protected by the Federal Confidentiality of Alcohol and Drug Abuse Patient Records regulations: The Federal rules restrict any use of the information to criminally investigate or prosecute any alcohol or drug abuse patient.[facility] HospitalIn the event this information is protected by the Federal Confidentiality of Alcohol and Drug Abuse Patient Records regulations: The Federal rules restrict any use of the information to criminally investigate or prosecute any alcohol or drug abuse patient.[facility] HospitalIn the event this information is protected by the Federal Confidentiality of Alcohol and Drug Abuse Patient Records regulations: The Federal rules restrict any use of the information to criminally investigate or prosecute any alcohol or drug abuse patient.[facility] Reason for Visit (unrecogniz ed section [...] Care Teams (unrecognized sec tion and content) 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 Start Date End Date Deborah Kendall MD [address] [facility] [place] [address] PCP - General Family Practice 03/22/18 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 Start Date End Date Deborah Kendall MD [address] [facility] [place] [address] PCP - General Family Practice 03/22/18 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 Start Date End Date Deborah Kendall MD [address] [facility] [place] [address] PCP - General Family Practice 03/22/18 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 Start Date End Date Deborah Kendall MD [address] [facility] [place] [address] PCP - General Family Medicine 03/22/18 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 Start Date End Date Deborah Kendall MD [address] [facility] [place] [address] PCP - General Family Medicine 03/22/18 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 Start Date End Date Deborah Kendall MD [address] [facility] [place] [address] PCP - General Family Medicine 03/22/18 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 [facility]. provides no warranty or guarantee of the accuracy or completeness of information in this document.
[2023-11-10 00:45] VITALS: BMI 31.8
[2023-11-10 00:51] VITALS: BP 153/68; PULSE 60; RESP 16; TEMP 36.6; O2SAT 97
[2023-11-10] MEDS: 0.9% Normal Saline (1000mL) 1,000 ML 100 ML IV (01:10)
[2023-11-10] MEDS: Meclizine 12.5 MG Tablet PO ×3 (01:10→14:10)
[2023-11-10] MEDS: 0.9% Saline Lock 10 ML Syringe IV (01:10)
[2023-11-10 05:15] VITALS: BMI 31.8
[2023-11-10 06:30] VITALS: BP 107/54; PULSE 62; RESP 16; TEMP 36.8; O2SAT 94
[2023-11-10] MEDS: Insulin Lispro 100 UNIT/ML INSULN.PEN SC ×2 (06:30→11:16)
[2023-11-10 07:12] LABS: Bedside Glucose 198 mg/dL (74-106)
[2023-11-10 07:33] LABS: Absolute Lymphocyte Count 1.97 X10^3/uL (0.83-4.51); Absolute Neutrophil Count 4.4 X10^3/uL (2.0-7.7); Basophil# 0.02 X10^3/uL; Basophil% 0.3 % (0-1); Eosinophils% 1.4 % (0-5); Hematocrit 36.4 % (37-47); Hemoglobin 12.1 g/dL (12.0-15.0); Lymphocyte # 1.97 X10^3/ul (0.83-4.51); Lymphocyte % 28.1 % (19-41); Mean Corp Hgb Conc 33.2 g/dL (32-36); Mean Corpuscular Hgb 31.4 pg (27.0-32.0); Mean Corpuscular Volume 94.5 fL (81-99); Mean Platelet Vol. 10.6 fl (6.2-12.0); Monocyte# 0.55 X10^3/uL; Monocyte% 7.9 % (0-10); NRBC Flagged by Analyzer 0 % (0-5); Neutrophil # 4.35 X10^3/uL (2.7-7.7); Neutrophil % 62.2 % (47-70); Platelet Count 188 K/mm3 (150-450); RBC Distribution Width CV 12.4 % (11.6-14.6); RBC Distribution Width SD 42.9 fl (35.1-43.9); Red Blood Count 3.85 M/mm3 (4.2-5.4)
[2023-11-10 08:07] LABS: ALB/GLOB Ratio 0.9 RATIO (0.9-2.4); AST(SGOT) 12 U/L (15-37); Alanine Aminotransfer ALT/SGPT 25 U/L (13-56); Albumin, Serum 2.9 g/dL (3.2-5.0); Alkaline Phosphatase 69 U/L (45-117); Anion Gap 3 (5-15); BUN 19 mg/dL (7-18); Calcium,Total 8.9 mg/dL (8.5-10.1); Chloride 110 mmol/L (98-107); Creatinine, Serum 0.86 mg/dL (0.55-1.02); EST Glomerular Filtration Rate 68 mL/min (>60); Est Glom Filt Rate - Afr Amer 82 mL/min (>60); Estimated Creatinine Clearance 60.21 ml/min; Globulin 3.2 g/dL (2.2-4.2); Glucose 197 mg/dL (74-106); Potassium 3.2 mmol/L (3.5-5.1); Protein, Total 6.1 g/dL (6.4-8.2); Sodium Level 139 mmol/L (136-145)
[2023-11-10 09:04] VITALS: BP 133/78; PULSE 70; RESP 18; TEMP 37.1; O2SAT 95
[2023-11-10] MEDS: Aspirin 81 MG TAB.CHEW PO (09:10)
[2023-11-10] MEDS: Enoxaparin 40 MG/0.4 ML Syringe SC (09:10)
[2023-11-10] MEDS: Atenolol 50 MG Tablet PO (09:10)
[2023-11-10] MEDS: hydroCHLOROthiazide 25 MG Tablet PO (09:10)
[2023-11-10] MEDS: Lisinopril 10 MG Tablet PO (09:10)
[2023-11-10 09:25] VITALS: O2SAT 93
--- NOTE | 2023-11-10 11:03 | MRI_ITS ---
HISTORY: vertigo. TECHNIQUE: Multiplanar and multisequence MR images of the brain were obtained without contrast. 290 images. COMPARISON: CT prior day. FINDINGS: BRAIN PARENCHYMA: Mild foci of increased T2 FLAIR signal in the bilateral cerebral white matter. No abnormal focus of restricted diffusion. No acute intracranial hemorrhage identified. CSF SPACES: Mild volume loss. No significant midline shift or other mass effect.No extra-axial fluid collection. VASCULAR SYSTEM: Major intracranial flow voids are maintained. PARANASAL SINUSES AND MASTOID AIR CELLS: No significant air fluid levels. ORBITS: Symmetric contents. MRI/Brain without Contrast IMPRESSION: No evidence for acute infarct. Mild chronic involutional and white matter changes. Electronically Signed: Vilma Ny MD at 15:30 EST ,
[2023-11-10 11:40] LABS: Bedside Glucose 188 mg/dL (74-106)
[2023-11-10 14:10] VITALS: BP 114/54; PULSE 64; RESP 18; TEMP 36.7; O2SAT 95
--- NOTE | 2023-11-10 16:02 | CASEMGMT ---
Met with?patient to complete HANLEY form. HANLEY form explained to?patient who voiced understanding and signed form. Original form placed in pt?s chart and copy provided to?patient. Carissa Montoya, Discharge Planning Asst
--- NOTE | 2023-11-10 16:15 | PCM.DC.SUM ---
Providers Date of Admission: 11/09/23 Date of Discharge: 11/10/23 Primary Care Physician: Dr. Naeem Freeman MD Reason For Visit: VERTIGO Diagnosis Discharge Diagnosis (1) Vertigo: Status: Acute Code(s): R42 - Dizziness and giddiness Medications at Discharge Home Medications atenolol 50 mg tablet 50 mg PO DAILY BLOOD PRESSURE 11/30/18 hydrochlorothiazide 25 mg tablet 25 mg PO DAILY BLOOD PRESSURE 11/30/18 lisinopril 10 mg tablet 10 mg PO DAILY BLOOD PRESSURE 11/30/18 atorvastatin 20 mg tablet 20 mg PO DAILY hld 11/09/23 cholecalciferol (vitamin D3) 10 mcg (400 unit) capsule (Vitamin D3) 10 mcg PO DAILY vitamin 11/09/23 glimepiride 4 mg tablet 4 mg PO DAILY dm 11/09/23 omeprazole 20 mg capsule,delayed release 20 mg PO DAILY PRN GERD 11/09/23 meclizine 12.5 mg tablet 12.5 mg PO TID PRN Dizziness Or Vertigo #30 tabs 11/10/23 Hospital Course Operations None Procedures None Summary of Care Provided Minutes Spent on Discharge: 55 Hospital Course: Patient is a 73-year-old female with a past medical history as outlined was admitted through the ED on 11/09/2023 with a complaint of dizziness and vertigo with associated nausea and vomiting. The onset of this was when she woke this morning and tried to get out of bed. It was worsened with movement. She denied any slurred speech, any focal weakness, numbness or tingling. Review of systems otherwise negative. On admission CT of the brain showed no acute intracranial pathology. MRI of the brain ordered was also negative for any evidence of stroke and CTA of the head and neck showed no evidence of hemodynamically significant stenosis. His symptoms were therefore thought to be likely due to BPPV as it worsened with movement of her head. Symptoms did not recur during admission and she felt well. She remained stable and was discharged home on 11/10/2023. She is to follow-up with her primary care doctor within 1 to 2 weeks. Patient seen and examined prior to discharge. She felt well and had no active complaints. She had an uneventful night. Review of systems otherwise negative. Labs and vitals reviewed. Home medication reviewed and reconciled. Physical Exam Const alert, oriented x3 and no apparent distress General Appearance: cooperative, comfortable, well kempt and well developed Orientation / Consciousness: awake Exam Limitations: no limitations HEENT normocephalic, head/scalp atraumatic, hearing grossly normal bilaterally and moist oral mucous membranes Mouth: oral and palatal mucosa normal Eyes PERRL, EOMs intact bilaterally and conjunctivae normal Neck no lymphadenopathy, supple and no JVD Resp normal respiratory effort, no retractions, no use of accessory muscles and clear to auscultation bilaterally Cardio regular rate, regular rhythm, S1 normal heart sound, S2 normal heart sound and no murmurs GI normal to inspection, nondistended, normoactive bowel sounds, soft to palpation, non-tender and non-distended Extremity normal to inspection, full ROM and no clubbing, cyanosis or edema Skin no rashes or lesions noted, no wounds and skin turgor normal Neuro oriented x3, CN's II-XII intact bilaterally, moves all extremities and no focal motor deficits Sensorium / Orientation: awake and alert Motor Exam: strength 5/5 throughout Psych affect normal Weight / BMI Weight Weight: 185 lb 6.54 oz Body Mass Index (BMI) 31.8 ABG / Lab / Microbiology Data 11/10/23 07:14 11/10/23 07:14 Laboratory: Laboratory Results - last 24 hr 11/09/23 20:10: WBC 9.8, RBC 4.77, Hgb 14.8, Hct 43.9, MCV 92.0, MCH 31.0, MCHC 33.7, RDW Std Deviation 40.7, RDW Coeff of Mignon 12.0, Plt Count 232, MPV 10.4, Immature Gran % (Auto) 0.400, Neut % (Auto) 79.6 H, Lymph % (Auto) 15.0 L, Pierce % (Auto) 4.6, Eos % (Auto) 0.1, Baso % (Auto) 0.3, Absolute Neuts (auto) 7.8 H, Absolute Lymphs (auto) 1.47, Nucleated RBC % 0, PT 13.8, INR 1.1, APTT 28.1, Sodium 137, Potassium 3.6, Chloride 108 H, Carbon Dioxide 26.0, Anion Gap 3 L, BUN 19 H, Creatinine 0.88, Estim Creat Clear Calc 58.84, Est GFR (MDRD) Af Amer 81, Est GFR (MDRD) Non-Af 67, BUN/Creatinine Ratio 21.6 H, Glucose 202 H, Calcium 10.0 11/10/23 06:28: POC Glucose 198 H 11/10/23 07:14: WBC 7.0, RBC 3.85 L, Hgb 12.1, Hct 36.4 L, MCV 94.5, MCH 31.4, MCHC 33.2, RDW Std Deviation 42.9, RDW Coeff of Mignon 12.4, Plt Count 188, MPV 10.6, Immature Gran % (Auto) 0.100, Neut % (Auto) 62.2, Lymph % (Auto) 28.1, Pierce % (Auto) 7.9, Eos % (Auto) 1.4, Baso % (Auto) 0.3, Absolute Neuts (auto) 4.4, Absolute Lymphs (auto) 1.97, Nucleated RBC % 0, Sodium 139, Potassium 3.2 L, Chloride 110 H, Carbon Dioxide 26.0, Anion Gap 3 L, BUN 19 H, Creatinine 0.86, Estim Creat Clear Calc 60.21, Est GFR (MDRD) Af Amer 82, Est GFR (MDRD) Non-Af 68, BUN/Creatinine Ratio 22.0 H, Glucose 197 H, Calcium 8.9, Total Bilirubin 0.60, AST 12 L, ALT 25, Alkaline Phosphatase 69, Total Protein 6.1 L, Albumin 2.9 L, Globulin 3.2, Albumin/Globulin Ratio 0.9 11/10/23 11:15: POC Glucose 188 H Radiography Diagnostic Testing: Radiology Impression Chest X-Ray 11/09/23 20:40 IMPRESSION: Normal x-ray examination of the chest. Electronically Signed: Rashawn Mondragon MD at 21:50 EST , Head/Neck CTA 11/09/23 21:18 IMPRESSION: No large vessel occlusion or acute abnormality. Calcified plaque in both cavernous carotid arteries but less than 50% stenosis bilaterally. Otherwise unremarkable for age. Electronically Signed: Rashawn Mondragon MD at 22:04 EST , Brain MRI 11/10/23 11:03 IMPRESSION: No evidence for acute infarct. Mild chronic involutional and white matter changes. Electronically Signed: Vilma Ny MD at 15:30 EST Reading Location ID and State: [facility] / [place] Tel , Service support , D/C Instructions Discharge Diet: Low fat / Low cholesterol Discharge Activity: Return to Normal Activity Weight Bearing Status: Weight bearing as tolerated Call your doctor if you observe: Fever of 101 or Higher, Shortness of breath, Dizziness, Swelling in the ankles and Chest pain Meaningful Use Info Meaningful Use Diagnoses (Choose all that apply): None applicable Discharge Plan Admission Admit Date/Time: 11/09/23 23:43 Primary Reason for Your Visit: dizziness Attending Provider: Deb Kyle Primary Care Provider: Naeem Freeman Consulting Providers: Lilo Akers Instructions Patient Instructions: ED Vertigo, Unspecified Discharge Orders/Prescriptions Prescriptions: New meclizine 12.5 mg Tablet 12.5 mg PO TID PRN (Reason: Dizziness Or Vertigo) Qty: 30 1RF Continued lisinopril 10 MG tablet 10 mg PO DAILY hydrochlorothiazide 25 MG tablet 25 mg PO DAILY atenolol 50 MG tablet 50 mg PO DAILY atorvastatin 20 mg tablet 20 mg PO DAILY glimepiride 4 mg tablet 4 mg PO DAILY omeprazole 20 mg capsule,delayed release(DR/EC) 20 mg PO DAILY PRN (Reason: GERD) cholecalciferol (vitamin D3) [Vitamin D3] 10 mcg (400 unit) capsule 10 mcg PO DAILY Referrals / Follow Up: Naeem Freeman MD [Primary Care Provider] - Within 2 Weeks Disposition Disposition (needs filled in before D/C Order can be placed): Home, Self Care Charges/Coding Visit Charges Inpatient E&M: 69293 Disch Hosp >30min
== END 2023-11-10 17:40 | disposition home or self-care (01) ==
LOC: ED 23:44 → MS3 23:47
PROVIDERS: Admitting Provider Family Medicine; Emergency Provider Emergency Medicine; PCP Family Medicine; Referring Provider Emergency Medicine; Visit Provider Student in an Organized Health Care Education/Training Program
DX: R42 Dizziness and giddiness (principal); E11.9 Type 2 diabetes mellitus without complications; Z79.84 Long term (current) use of oral hypoglycemic drugs; E78.5 Hyperlipidemia, unspecified; I10 Essential (primary) hypertension; K21.9 Gastro-esophageal reflux disease without esophagitis; E66.9 Obesity, unspecified; Z79.899 Other long term (current) drug therapy; Z68.31 Body mass index [BMI] 31.0-31.9, adult; R11.2 Nausea with vomiting, unspecified; I65.23 Occlusion and stenosis of bilateral carotid arteries
CPT/HCPCS: 36415; 70496; 70498; 70551; 71045; 80048; 80053; 82962; 85025; 85610; 85730; 93005; 96361; 96372; 96374; 96375; 99221; 99284; J7030; Q9967; A4216; G0378; J2405